=== PATIENT | male | born 1955 | race Caucasian/White ===

== ENCOUNTER 2021-07-10 13:18 | Observation (INO) | payer MEDICARE, MEDICAID, SELFPAY ==
[2021-07-10] VITALS (10 sets, daily range): BP systolic 103–137; BP diastolic 79–97; PULSE 80–109; RESP 12–20; TEMP 36.6–36.7; O2SAT 89–97; BMI 22.7
--- NOTE | 2021-07-10 13:39 | EKG12_ITS ---
Test Reason : HT Blood Pressure : / mmHG Vent. Rate : 077 BPM Atrial Rate : 077 BPM P-R Int : 162 ms QRS Dur : 074 ms QT Int : 374 ms P-R-T Axes : 077 085 079 degrees QTc Int : 423 ms Normal sinus rhythm Low voltage QRS (Limb Leads) Confirmed by BAO GEORGE, TAMAR ([id number]), scientific editor KAILYN MEDRANO ([id number]) on 07/12/2021 8:43:21 AM Referred By: TAE Confirmed By:TAMAR GORE MD
--- NOTE | 2021-07-10 13:41 | EDS_ITS ---
HPI History of Present Illness Chief Complaint: Shortness of Breath Informant: patient Onset/Context/Timing Onset: Today Current Severity: Moderate Maximum Severity: Severe Narrative Narrative: Patient presents via EMS secondary to shortness of breath. Patient has a COPD history and states this time a year he tends to have more trouble breathing. He woke around 3 or 4 this morning with increased wheezing and shortness of breath. He describes significant shortness of breath with any exertion. He denies fever or chills. He denies chest pain. He has had a mild cough for the past couple days. [facility] Medical History COPD (chronic obstructive pulmonary disease) History of back pain History of back problems Multiple sclerosis Home Medications albuterol sulfate [Ventolin HFA] 1 - 2 puff INHALATION Q4H PRN PRN #1 inhaler 05/30/13 [Rx Last Taken Unknown] umeclidinium-vilanterol [Anoro Ellipta] 1 ea INHALATION DAILY 07/10/21 [History Last Taken Unknown] Allergy/AdvReac Type Severity Reaction Status Date / Time Penicillins Allergy Upset Verified 09/06/14 16:06 Stomach Social History Smoking Status: Former smoker ROS ROS ED Constitutional Constitutional ED: Denies chills or fever(s) Eyes Eyes: Denies change in vision ENT ENT ED: Denies sore throat Cardiovascular Cardiovascular: Denies chest pain Respiratory/Chest Respiratory/Chest: Reports cough and dyspnea Gastrointestinal Gastrointestinal: Denies abdominal pain, nausea or vomiting Genitourinary Genitourinary ED: Denies dysuria Musculoskeletal Musculoskeletal: Denies back pain Integumentary Denies rash Neurologic Neurologic: Denies headache(s) Allergic/Immunologic Allergic/Immunologic ED: Denies urticaria EXAM Physical Exam Const Vital Signs: 07/10/21 13:20 07/10/21 13:24 07/10/21 13:52 Temperature 98 F Temperature Source Temporal Pulse Rate 99 84 Respiratory Rate 18 12 Respiratory Effort Short of Breath Labored Respiratory Depth Shallow Respiratory Pattern Tachypnea Normal Blood Pressure 137/97 H Blood Pressure Mean 110 Pulse Ox 97 Oxygen Delivery Method Room Air Room Air 07/10/21 14:40 Temperature Temperature Source Pulse Rate 80 Respiratory Rate 14 Respiratory Effort Respiratory Depth Respiratory Pattern Blood Pressure 116/80 Blood Pressure Mean 92 Pulse Ox 92 Oxygen Delivery Method Room Air Positive well nourished and well developed General Appearance ED: well developed HEENT Reports moist mucous membranes Eyes PERRL and EOMs intact bilaterally Neck supple Chest Wall inspection of chest normal and palpation of chest normal Resp Resp Narrative: Mild tachypnea. Decreased air movement throughout. GI non-tender Palpation: soft Extremity normal to inspection Neuro oriented x3 Sensorium / Orientation: alert Psych mental status grossly normal Skin no rashes or lesions noted MDM MDM MDM Narrative Medical decision making narrative: Lab work and chest x-ray obtained. EKG ordered. Patient given Solu-Medrol along with aerosols. Lab Data Attestation: I reviewed the patient's lab results. Labs: Laboratory Results - last 24 hr 07/10/21 07/10/21 13:33 13:33 WBC 5.5 RBC 5.17 Hgb 14.9 Hct 46.0 MCV 89.0 MCH 28.8 MCHC 32.4 RDW Std Deviation 45.3 H RDW Coeff of Kelsea 13.9 Plt Count 259 MPV 8.4 Immature Gran % (Auto) 0.200 Neut % (Auto) 72.9 H Lymph % (Auto) 13.8 L [place] % (Auto) 7.1 Eos % (Auto) 5.3 H Baso % (Auto) 0.7 Absolute Neuts (auto) 4.0 Absolute Lymphs (auto) 0.76 L Nucleated RBC % 0 Sodium 140 Potassium 4.5 Chloride 105 Carbon Dioxide 31.0 Anion Gap 4 L BUN 8 Creatinine 0.86 Estim Creat Clear Calc 92.08 Est GFR (MDRD) Af Amer 115 Est GFR (MDRD) Non-Af 95 BUN/Creatinine Ratio 9.4 L Glucose 100 Calcium 9.1 Troponin I High Sens < 3 L Radiography Chest X-Ray - ED: 1 View, Read by ED Physician, Chronic Changes and No Infiltrates Diagnostic Testing: Clinical Impression(s) from Imaging Studies Chest X-Ray 07/10/21 14:09 IMPRESSION: Hyperinflation. The lungs are clear. Prominence of the central pulmonary arteries. Electronically Signed: Christiano Arceo MD at 14:25 EDT , EKG Initial EKG: Attestation: I personally reviewed and interpreted this EKG as follows: Interpretation: Sinus Rhythm (Sinus at 77 with no acute ischemia.) Treatment and Re-Evaluation Narrative: Repeat evaluation patient does feel improved while sitting in bed at rest. He had been on 2 L nasal cannula throughout his ED stay. This is turned off. Lab work is unremarkable. EKG is normal. Chest x-ray reveals no focal infiltrate. Patient is ambulated on room air. He does become increasingly short of breath with O2 sat dropping to 89. He does recover with sitting at rest in bed. Lung sounds are grossly clear at this time. Patient does live alone and has been having trouble getting around at home without significant shortness of breath. With his decreased capacity for activity I do feel he should be observed for elena atments and steroids. I will speak with the hospitalist. Discharge Plan Triage Chief Complaint: Shortness of Breath ED Provider: Jessica Zavala Dx/Rx/DC Orders Clinical Impression: COPD exacerbation Prescriptions: No Action albuterol sulfate [Ventolin HFA] 1 INHALER inhaler 1 - 2 puff inhalation Q4H PRN PRN (Reason: Wheezing) Qty: 1 RF: 0 Anoro Ellipta 62.5-25 mcg/actuation blister with device 1 ea INHALATION DAILY RF: 0 Primary Care Provider: Segun Valdez NP Referrals: Segun Valdez NP, [facility]AS[facility] SPEC-C [Primary Care Provider] - Disposition Disposition: Acute Care Hospital [facility]
[2021-07-10] MEDS: Albuterol 2.5 MG/3 ML VIAL.NEB. INHALATION (13:53)
[2021-07-10] MEDS: MethylPREDNISolone 125 MG/2 ML Vial IV (14:02)
[2021-07-10 14:05] LABS: Absolute Lymphocyte Count 0.76 X10^3/uL (0.83-4.51); Basophil# 0.04 X10^3/uL; Basophil% 0.7 % (0-1); Eosinophil# 0.29 X10^3/uL; Eosinophils% 5.3 % (0-5); Hemoglobin 14.9 g/dL (13.0-16.5); Lymphocyte # 0.76 X10^3/ul (0.83-4.51); Lymphocyte % 13.8 % (19-41); Mean Corp Hgb Conc 32.4 g/dL (32-36); Mean Corpuscular Hgb 28.8 pg (27.0-32.0); Mean Platelet Vol. 8.4 fl (6.2-12.0); Monocyte# 0.39 X10^3/uL; Monocyte% 7.1 % (0-10); NRBC Flagged by Analyzer 0 % (0-5); Neutrophil % 72.9 % (47-70); Platelet Count 259 K/mm3 (150-450); RBC Distribution Width CV 13.9 % (11.6-14.6); RBC Distribution Width SD 45.3 fl (35.1-43.9); Red Blood Count 5.17 M/mm3 (4.6-6.2); White Blood Count 5.5 K/mm3 (4.4-11.0)
--- NOTE | 2021-07-10 14:09 | RAD_ITS ---
STUDY: X-RAY CHEST REASON FOR EXAM: Male, 66 years old. Sob TECHNIQUE: Single AP portable view of the chest. COMPARISON: None. FINDINGS: EKG electrodes are seen. Hyperinflation. The lungs are clear. There is no demonstrated pleural abnormality. Normal size heart. Normal mediastinum and rashaad. There is prominence of the pulmonary hilar arteries without peripheral pulmonary vascular congestion, suggesting pulmonary hypertension. Normal visualized aortic arch and descending thoracic aorta. Normal visualized thoracic spine. Normal visualized ribs, clavicles, and shoulders. There is no demonstrated abnormality of the visualized soft tissue structures of the upper abdomen. RAD/Chest 1 View (Portable) IMPRESSION: Hyperinflation. The lungs are clear. Prominence of the central pulmonary arteries. Electronically Signed: Christiano Arceo MD at 14:25 EDT ,
[2021-07-10 14:19] LABS: Anion Gap 4 (5-15); BUN 8 mg/dL (7-18); BUN/Creat Ratio 9.4 RATIO (10-20); Calcium,Total 9.1 mg/dL (8.5-10.1); Chloride 105 mmol/L (98-107); Creatinine, Serum 0.86 mg/dL (0.70-1.30); EST Glomerular Filtration Rate 95 mL/min (>60); Est Glom Filt Rate - Afr Amer 115 mL/min (>60); Estimated Creatinine Clearance 92.08 ml/min; Glucose 100 mg/dL (74-106); Potassium 4.5 mmol/L (3.5-5.1); Sodium Level 140 mmol/L (136-145); Troponin-I HS < 3 pg/mL (3.0-78.0)
--- NOTE | 2021-07-10 15:08 | NURSING ---
DR GRIFFIN FOR DR CARBAJAL
--- NOTE | 2021-07-10 15:15 | NURSING ---
MED SURG OBS TERELETSKY COPD EXAC
--- NOTE | 2021-07-10 15:23 | PCM.HP.STD ---
Documented by User: Tony ROJO 07/10/21 15:40 HPI - General General Date of Admission: 07/10/21 Date of Service: 07/10/21 Chief Complaint: Shortness of breath HPI Narrative ANA KAPOOR is a 66-year-old male who presents to the ED at [facility] on 07/10/2021 with a chief complaint of shortness of breath. Patient reports that for the past 3 to 4 days he has been having increasingly worsening shortness of breath with wheezing. Patient reports that he went to his local urgent care and when he walked into the door they immediately called the squad because he says I must have looked really bad. Patient no longer smokes, but does report a 40-year history of smoking 1 to 2 packs/day. Patient reports that he quit smoking 3 years ago. Patient denies any infectious symptoms to include fever, chills, N/V/D. Patient denies any other respiratory symptoms to include cough, sputum production, hemoptysis or chest pain. Vital signs in the ED are unremarkable and patient is currently satting 90% on room air. CBC and BMP are unremarkable. High-sensitivity troponins are within normal limits. Chest x-ray is consistent with emphysematous change with hyperinflation of the lungs, although there appears to be no acute cardiopulmonary process. Patient was given bronchodilators and IV Solu-Medrol in the ED. [facility] Medical History (Updated 07/10/21 @ 15:28 by Tony ROJO) COPD (chronic obstructive pulmonary disease) History of back pain History of back problems Multiple sclerosis Myocardial infarct Smoker Stroke Home Medications albuterol sulfate [Ventolin HFA] 2 puff INHALATION Q6H 07/10/21 [History Last Taken 07/10/21] prednisone 20 mg PO DAILY 07/10/21 [History Last Taken Unknown] sildenafil 100 mg PO DAILY PRN 07/10/21 [History Last Taken Unknown] umeclidinium-vilanterol [Anoro Ellipta] 1 ea INHALATION DAILY 07/10/21 [History Last Taken 07/10/21] Allergy/AdvReac Type Severity Reaction Status Date / Time Penicillins Allergy Upset Verified 09/06/14 16:06 Stomach Family History Father Myocardial infarction Surgical History no surgical history no surgical history Social History (Updated 07/10/21 @ 15:30 by Tony ROJO) Smoking Status: Former smoker quit date: 07/10/18 pack-years: 60 ROS Constitutional Constitutional: Reports weakness; Denies anorexia, change in weight, chills, fatigue, fever(s), malaise, night sweats or other Eyes Eyes: Denies blurry vision, change in eye color, change in vision, discharge from eye(s), double vision, erythema, eye pain, loss of vision or other ENT HEENT: Denies abnormal hearing, dysphagia, ear pain, epistaxis, headache(s), hearing loss, nasal congestion, nasal discharge, post nasal drip, sinus pressure, sore throat or other Cardiovascular Cardiovascular: Reports dyspnea on exertion; Denies chest pain, claudication, edema, lightheadedness, orthopnea, palpitations, paroxysmal nocturnal dyspnea, rapid heart rate, syncope or other Respiratory/Chest Respiratory/Chest: Reports shortness of breath at rest, shortness of breath with exertion and wheezing; Denies cough, dyspnea, excessive phlegm production, hemoptysis, productive cough or other Gastrointestinal Gastrointestinal: Denies abdominal pain, coffee ground emesis, constipation, diarrhea, dyspepsia, hematemesis, hematochezia, loose stools, melena, nausea, vomiting or other Genitourinary Genitourinary: Denies burning urination, difficulty urinating, dysuria, hematuria, nocturia, urinary frequency, urinary hesitancy, urinary incontinence, urinary urgency or other Musculoskeletal Musculoskeletal: Denies arthralgias, back pain, joint pain, joint stiffness, joint swelling, myalgias, neck pain or other Neurologic Neurologic: Denies abnormal gait, abnormal speech, confusion, disequilibrium, dizziness, focal weakness, headache(s), numbness, paresthesias, seizure-like activity, seizures, syncope, tingling, tremor(s) or other Psychiatric Psychiatric: Denies anxiety, depression, homicidal ideation, suicidal ideation or other Endocrine Endocrinology: Denies change in body appearance, cold intolerance, excessive sweating, heat intolerance, polydipsia, polyuria or other Hematologic/Lymphatic Hematologic/Lymphatic: Denies anemia, easy bleeding, easy bruising, lymphadenopathy or other Allergic/Immunologic Allergic/Immunologic: Denies rhinitis, hives, eczemia, asthma or other Vital Signs Vital Signs Vital Signs: 07/10/21 13:20 07/10/21 13:24 07/10/21 13:52 Temperature 98 F Temperature Source Temporal Pulse Rate 99 84 Respiratory Rate 18 12 Respiratory Effort Short of Breath Labored Respiratory Depth Shallow Respiratory Pattern Tachypnea Normal Blood Pressure 137/97 H Blood Pressure Mean 110 Pulse Ox 97 Oxygen Delivery Method Room Air Room Air 07/10/21 14:40 Temperature Temperature Source Pulse Rate 80 Respiratory Rate 14 Respiratory Effort Respiratory Depth Respiratory Pattern Blood Pressure 116/80 Blood Pressure Mean 92 Pulse Ox 92 Oxygen Delivery Method Room Air Weight Weight: 172 lb 2.896 oz Body Mass Index (BMI) 22.7 Physical Exam Const alert and oriented x3 General Appearance: cooperative HEENT normocephalic, head/scalp atraumatic and hearing grossly normal bilaterally Eyes PERRL, EOMs intact bilaterally and conjunctivae normal Neck no lymphadenopathy, supple and no JVD Resp normal respiratory effort, normal air movement and no retractions Resp Narrative: Wheezing present on auscultation throughout the right and left lung dawkins. Currently satting 90% on room air. Cardio regular rate, regular rhythm and no JVD GI normal to inspection, nondistended, normoactive bowel sounds Extremity normal to inspection Skin no rashes or lesions noted Neuro CN's II-XII intact bilaterally Psych affect normal Results Lab / Micro Data Result Diagrams: 07/10/21 13:33 07/10/21 13:33 Labs: Laboratory Results - last 24 hr 07/10/21 13:33: WBC 5.5, RBC 5.17, Hgb 14.9, Hct 46.0, MCV 89.0, MCH 28.8, MCHC 32.4, RDW Std Deviation 45.3 H, RDW Coeff of Kelsea 13.9, Plt Count 259, MPV 8.4, Immature Gran % (Auto) 0.200, Neut % (Auto) 72.9 H, Lymph % (Auto) 13.8 L, [place] % (Auto) 7.1, Eos % (Auto) 5.3 H, Baso % (Auto) 0.7, Absolute Neuts (auto) 4.0, Absolute Lymphs (auto) 0.76 L, Nucleated RBC % 0 07/10/21 13:33: Sodium 140, Potassium 4.5, Chloride 105, Carbon Dioxide 31.0, Anion Gap 4 L, BUN 8, Creatinine 0.86, Estim Creat Clear Calc 92.08, Est GFR (MDRD) Af Amer 115, Est GFR (MDRD) Non-Af 95, BUN/Creatinine Ratio 9.4 L, Glucose 100, Calcium 9.1, Troponin I High Sens < 3 L Radiology Impression Chest X-Ray 07/10/21 14:09 IMPRESSION: Hyperinflation. The lungs are clear. Prominence of the central pulmonary arteries. Electronically Signed: Christiano Arceo MD at 14:25 EDT , Assessment & Plan Assessment/Plan (1) COPD exacerbation: PLAN: Patient is a 66-year-old male who presents to the ED at [facility] on 07/10/2021 with a chief complaint of shortness of breath. Patient will be admitted for observation to evaluate and manage acute COPD exacerbation. 1) acute on chronic COPD exacerbation Patient not in acute hypoxic respiratory failure as oxygen saturations have maintained. Patient does endorse a 40-year smoking history of smoking 1 to 2 packs/day. Patient reports that he quit smoking 3 years ago. Chest x-ray consistent with emphysematous change with hyperinflated lungs. No acute cardiopulmonary process appreciated on CXR. Will not initiate antibiotics as patient is without any infectious symptoms. Plan; admit to [facility] for observation, initiate IV steroid, initiate bronchodilators, incentive spirometry encouraged, supplemental oxygen as needed, CBC and BMP in a.m. 2) history of FL Patient reports that he suffered a heart attack in 2001, reports being treated by Dr. Conway. Not on any preventative aspirin and statin regimen. 3) history of stroke Patient reports that he suffered a stroke in 2008. Not on any preventative aspirin and statin regimen. 4) history of tobacco abuse Patient reports a 40-year history of smoking 1 to 2 packs/day. Patient reports that he quit 3 years ago, further cessation encouraged. DVT Prophylaxis - Heparin Patient seen by Tony Rivera PA-C, under the supervision of Dr. Eason. Time spent on patient care: 25 minutes. Documented by User: Dr. Lexx Eason DO 07/10/21 18:01 HPI - General General Date of Admission: 07/10/21 [facility] Medical History (Updated 07/10/21 @ 15:28 by Tony ROJO) COPD (chronic obstructive pulmonary disease) History of back pain History of back problems Multiple sclerosis Myocardial infarct Smoker Stroke Home Medications albuterol sulfate [Ventolin HFA] 2 puff INHALATION Q6H 07/10/21 [History Last Taken 07/10/21] prednisone 20 mg PO DAILY 07/10/21 [History Last Taken Unknown] sildenafil 100 mg PO DAILY PRN 07/10/21 [History Last Taken Unknown] umeclidinium-vilanterol [Anoro Ellipta] 1 ea INHALATION DAILY 07/10/21 [History Last Taken 07/10/21] Allergy/AdvReac Type Severity Reaction Status Date / Time Penicillins Allergy Upset Verified 09/06/14 16:06 Stomach Family History Father Myocardial infarction Surgical History no surgical history Social History (Updated 07/10/21 @ 15:30 by Tony ROJO) Smoking Status: Former smoker quit date: 07/10/18 pack-years: 60 Results Lab / Micro Data Result Diagrams: 07/10/21 13:33 07/10/21 13:33 Charges/Coding Addendum Addendum: Patient was seen and examined independently of Tony Rivera, he came to the ER today with complaints of increasing shortness of breath over the last 24 hours. Patient has a history of chronic obstructive pulmonary disease but has not seen a family physician for several months, his last family physician retired, he went to get a refill on his medications last week and was told he had to come in for checkup-he saw a physician Thursday a week ago and his inhalers were renewed and he was placed on prednisone. Patient did not take the prednisone however because he did not understand what it was used for. Patient denies any fever or chills, he denies any sputum production. Patient states he quit smoking approximately 3 years ago. Patient states he is never seen a editor house organ, other medical problems that the patient has include MS for which she is not under active treatment, and degenerative joint disease of the lumbar spine-he used to get epidural injections in his lumbar spine but he has not in quite some time. On examination he appeared older than stated age. Vital signs as documented. Skin warm and dry and without overt rashes. Neck without JVD, neck was supple, trachea midline, thyroid was normal. Lungs-there are expiratory wheezes noted over both lung dawkins, decreased breath sounds were noted bilaterally, heart exam notable for regular rhythm, normal sounds and absence of murmurs, rubs or gallops. Abdomen unremarkable and without evidence of organomegaly, masses, or abdominal aortic enlargement. Bowel sounds are present, abdomen is not distended. Extremities nonedematous, no cyanosis was noted, no clubbing was noted. Neuro: Cranial nerves II through XII are grossly intact, no focal motor deficits were noted, sensation to light touch and pinprick intact, motor exam 5/5 throughout. Psych: Patient is alert and oriented x3, he does not appear anxious or depressed, he does not appear agitated. Patient's chest x-ray did not show evidence of the pneumonia, patient was given an aerosol treatment and IV corticosteroids in the emergency room but remained dyspneic on walking and it was felt that he should be placed in observation status overnight for exacerbation of COPD. I reviewed Tony Rivera's history and physical including his medical assessment and plan of care and with the above additions endorse it. Total clinical time spent by myself addressing the patient's issues, reviewing the patient's medical data, and collaborating with the patient's care team: 45 minutes Visit Charges OBSV E&M: [id number] Initial observation care L3
[2021-07-10] MEDS: Ipratropium/Albuterol Sulfate 3 ML AMPUL.NEB INHALATION ×2 (19:08→22:59)
[2021-07-10] MEDS: 0.9% Saline Lock 10 ML Syringe IV (20:34)
[2021-07-10] MEDS: Heparin Injection (Vial) 5,000 UNIT/ML VIAL 5000 UNIT SC (20:34)
[2021-07-11] VITALS (10 sets, daily range): BP systolic 115–118; BP diastolic 78–88; PULSE 78–110; RESP 12–28; TEMP 36.5–36.7; O2SAT 2–95
[2021-07-11] MEDS: Ipratropium/Albuterol Sulfate 3 ML AMPUL.NEB INHALATION ×3 (03:40→11:28)
[2021-07-11] MEDS: 0.9% Saline Lock 10 ML Syringe IV (06:40)
[2021-07-11] MEDS: Heparin Injection (Vial) 5,000 UNIT/ML VIAL 5000 UNIT SC (08:13)
--- NOTE | 2021-07-11 10:05 | CASEMGMT ---
Addendum entered by Park Cedeño 07/11/21 14:44: TELLO SNELL in to pt room, pt is agreeable to having a taxi take him to the [facility] urgent care to get his car. Notified driller helper to set up. Addendum entered by Park Cedeño 07/11/21 14:28: Notified from pt nurse that pt does not have transportation home. TC to [facility] transportation, they do not have availability to take pt home. Addendum entered by Park Cedeño 07/11/21 14:25: Received notification that [facility] could not take pt. Pt agreeable to [facility] and [facility] to be contacted as well. [facility] is not sure if they can accept the insurance. [facility] is able to see pt with SOC tomorrow. Pt is agreeable to this. Provided pt nurse with pox for pt. Pt denies further needs. Addendum entered by Park Cedeño 07/11/21 11:27: Pt qualifies for home O2. Faxed order to [employer], portable tank taken from [employer]. Addendum entered by Park Cedeño 07/11/21 11:12: Patient was provided a list of [facility] providers including quality and resource use data and consistent with the patient?s preferred geographic region, medical needs, and insurance network. The patient?s preferred provider is [facility], [facility] and [facility]. [facility] not able to [facility] this pt insurance. TC to [facility], left message on intake. Faxed referral to [facility] and [facility]. Original Note: TELLO SNELL Assessment: Face to Face with pt for initial transition planning/care coordination assessment. TELLO SNELL introduced self and role at [facility], pt voices understanding and consents to assessment. Pt is A/O x4 and answers all questions appropriately at this time. Pt lying in bed with O2 on in no distress. Care providers, pharmacy, and demographics verified/updated. Admitting Dx: exac of COPD PCP:Segun Valdez NP Specialists:Pt denies. Preferred Pharmacy:[facility] Insurance: [facility] Dual Complete Prescription Benefit: yes LW/HPOA: Pt denies having a LW/DPOA and denies need for info regarding AD. LNOK: Pt denies having any contacts to list. He states he has lost 25 friends/family in the last couple of years. States approx 9 or 10 was due to cancer. Living Arrangements: Pt lives alone in a mobile home with 3 steps to enter without a rail. Pt states his steps and home is in poor repair. Denies need to speak to [employer] for housing resources. Pt reports some days he is I in ADL's and some days he is not d/t his shortness of breath. States most recently, pt unable to bathe d/t sob. Transportation: Pt drives self and denies concerns with transportation. DME/HHC/SNF: Pt has a cane, crutches and a w/c at home. Pt denies hx of HHC or SNF stays. Pt states no concerns with going home at time of dc. Discussed HHC and SN for resp assessment and teaching and OT for energy conservation. Pt is also interested in PT, but states he cannot overdo it. Pt agreeable to HHC. Pt states no further concerns/needs. CM to follow. Advised pt to ask CM if any further question/concerns/needs arise, voices understanding. Pt Goal: Home with HHC Plan: Home with HHC, will follow for O2 needs.
--- NOTE | 2021-07-11 10:31 | DCINST_ITS ---
Discharge Instructions Diet Discharge Diet: No restrictions Activity Discharge Activity: Return to Normal Activity Dressing / Incision Call your doctor if you observe: Fever of 101 or Higher, Shortness of breath, Dizziness and Chest pain Follow Up Care Test Results: Test results from this visit will be discussed in further detail at your follow-up appointment, if applicable. Discharge Plan Admission Admit Date/Time: 07/10/21 15:12 Primary Reason for Your Visit: COPD exacerbation Attending Provider: Lexx Eason Primary Care Provider: Segun Valdez NP Instructions Additional Instructions / Restrictions: Continue supplemental oxygen as ordered at discharge. Continue outpatient follow-up for pulmonary function testing/pulmonary follow-up as scheduled. Discharge Orders/Prescriptions Prescriptions: New azithromycin 500 mg tablet 500 mg PO DAILY 3 Days Qty: 3 RF: 0 prednisone 10 mg tablet See Taper mg PO DAILY Qty: 30 RF: 0 Continued Anoro Ellipta 62.5-25 mcg/actuation blister with device 1 ea INHALATION DAILY RF: 0 sildenafil 100 mg tablet 100 mg PO DAILY PRN (Reason: Sexual Activity) RF: 0 albuterol sulfate [Ventolin HFA] 1 INHALER HFA aerosol inhaler 2 puff inhalation Q6H RF: 0 Discontinued prednisone 20 mg tablet 20 mg PO DAILY RF: 0 Referrals / Follow Up: Paresh Steele MD [NON-STAFF] - Within 2 Weeks (as scheduled. ) Segun Valdez NP, [facility] [Primary Care Provider] - Within 1 Week Disposition Disposition (needs filled in before D/C Order can be placed): Home, Self Care
--- NOTE | 2021-07-11 10:44 | PCM.DC.SUM ---
Documented by User: Miladys Sanderson NP, ACCOUNT RETENTION REPRESENTATIVE-C 07/11/21 11:24 Providers Date of Admission: 07/10/21 Date of Discharge: 07/11/21 Primary Care Physician: KRISTY Flores Reason For Visit: EXACERBATION OF COPD Diagnosis Discharge Diagnosis (1) COPD exacerbation: Status: Chronic Code(s): J44.1 - Chronic obstructive pulmonary disease with (acute) exacerbation Medications at Discharge Home Medications Anoro Ellipta 1 ea INHALATION DAILY 07/10/21 albuterol sulfate [Ventolin HFA] 2 puff INHALATION Q6H 07/10/21 sildenafil 100 mg PO DAILY PRN 07/10/21 azithromycin 500 mg PO DAILY 3 Days #3 tab 07/11/21 prednisone See Taper PO DAILY #30 tab 07/11/21 Hospital Course Operations None Procedures None Summary of Care Provided Hospital Course: Patient is a 66 year old male admitted 07/10/21 due to shortness of breath. 1. Acute exacerbation of chronic COPD-chest x-ray without infiltrate. Patient recently referred to pulmonary medicine as outpatient with scheduled PFTs/outpatient COPD work-up and management. Patient will require require supplemental oxygen with exertion at discharge. Continue supplement oxygen to maintain O2 above 90%. Patient received IV steroids and aerosols during admission. He improved quicker than expected. Discharged on prednisone taper, home inhaler regimen with further outpatient pulmonary follow-up. Follow-up with PCP within 1 week. 2. History of [place]-not on regimen. 3. History of CVA-not on aspirin, statin. 4. Former tobacco onc-12-viru-year history. Quit 3 years ago. Encouraged continued cessation. Patient seen and examined prior to discharge. Physical assessment as noted below. Patient is stable for discharge with follow up recommendations as noted above. This patient was seen by KRISTY Hu under the supervision of Dr. Eason. Time spent examining patient, reviewing data and subsequent management of care: 14 Minutes Physical Exam Const alert, oriented x3 and no apparent distress Orientation / Consciousness: awake, oriented to person, oriented to place and oriented to time HEENT normocephalic and moist oral mucous membranes Eyes PERRL, EOMs intact bilaterally and conjunctivae normal Neck no lymphadenopathy Resp Auscultation: wheezes and diminished lung sounds Cardio regular rate, regular rhythm and no murmurs Peripheral Pulses: pulses 2+ throughout GI normal to inspection, nondistended, normoactive bowel sounds, non-tender and non-distended Extremity normal to inspection Skin no rashes or lesions noted Lesions: no lesions Rashes: no rashes Trauma: no lacerations or abrasions Neuro CN's II-XII intact bilaterally, no focal motor deficits, no sensory deficits noted and deep tendon reflexes 2+ bilaterally Psych mental status grossly normal and affect normal Weight / BMI Weight Weight: 172 lb 2.896 oz Body Mass Index (BMI) 22.7 ABG / Lab / Microbiology Data Result Diagrams: 07/10/21 13:33 07/10/21 13:33 Laboratory: Laboratory Results - last 24 hr 07/10/21 13:33: WBC 5.5, RBC 5.17, Hgb 14.9, Hct 46.0, MCV 89.0, MCH 28.8, MCHC 32.4, RDW Std Deviation 45.3 H, RDW Coeff of Kelsea 13.9, Plt Count 259, MPV 8.4, Immature Gran % (Auto) 0.200, Neut % (Auto) 72.9 H, Lymph % (Auto) 13.8 L, [place] % (Auto) 7.1, Eos % (Auto) 5.3 H, Baso % (Auto) 0.7, Absolute Neuts (auto) 4.0, Absolute Lymphs (auto) 0.76 L, Nucleated RBC % 0 07/10/21 13:33: Sodium 140, Potassium 4.5, Chloride 105, Carbon Dioxide 31.0, Anion Gap 4 L, BUN 8, Creatinine 0.86, Estim Creat Clear Calc 92.08, Est GFR (MDRD) Af Amer 115, Est GFR (MDRD) Non-Af 95, BUN/Creatinine Ratio 9.4 L, Glucose 100, Calcium 9.1, Troponin I High Sens < 3 L Radiography Diagnostic Testing: Radiology Impression Chest X-Ray 07/10/21 14:09 IMPRESSION: Hyperinflation. The lungs are clear. Prominence of the central pulmonary arteries. Electronically Signed: Christiano Arceo MD at 14:25 EDT , D/C Instructions Discharge Diet: No restrictions Call your doctor if you observe: Fever of 101 or Higher, Shortness of breath, Dizziness and Chest pain Meaningful Use Info Meaningful Use Diagnoses (Choose all that apply): None applicable Discharge Plan Admission Admit Date/Time: 07/10/21 15:12 Primary Reason for Your Visit: COPD exacerbation Attending Provider: Lexx Eason Primary Care Provider: Segun Valdez NP Instructions Additional Instructions / Restrictions: Continue supplemental oxygen as ordered at discharge. Continue outpatient follow-up for pulmonary function testing/pulmonary follow-up as scheduled. Discharge Orders/Prescriptions Prescriptions: New azithromycin 500 mg tablet 500 mg PO DAILY 3 Days Qty: 3 RF: 0 prednisone 10 mg tablet See Taper mg PO DAILY Qty: 30 RF: 0 Continued Anoro Ellipta 62.5-25 mcg/actuation blister with device 1 ea INHALATION DAILY RF: 0 sildenafil 100 mg tablet 100 mg PO DAILY PRN (Reason: Sexual Activity) RF: 0 albuterol sulfate [Ventolin HFA] 1 INHALER HFA aerosol inhaler 2 puff inhalation Q6H RF: 0 Discontinued prednisone 20 mg tablet 20 mg PO DAILY RF: 0 Referrals / Follow Up: Paresh Steele MD [NON-STAFF] - Within 2 Weeks (as scheduled. ) Segun Valdez NP, ACCOUNT RETENTION REPRESENTATIVE-C [Primary Care Provider] - Within 1 Week Disposition Disposition (needs filled in before D/C Order can be placed): Home Health Service Documented by User: Dr. Lexx Eason DO 07/13/21 12:49 Providers Date of Admission: 07/10/21 Reason For Visit: EXACERBATION OF COPD Medications at Discharge Home Medications Anoro Ellipta 1 ea INHALATION DAILY 07/10/21 albuterol sulfate [Ventolin HFA] 2 puff INHALATION Q6H 07/10/21 sildenafil 100 mg PO DAILY PRN 07/10/21 azithromycin 500 mg PO DAILY 3 Days #3 tab 07/11/21 prednisone See Taper PO DAILY #30 tab 07/11/21 ABG / Lab / Microbiology Data Result Diagrams: 07/10/21 13:33 07/10/21 13:33 Discharge Plan Admission Admit Date/Time: 07/10/21 15:12 Primary Reason for Your Visit: COPD exacerbation Attending Provider: Lexx Eason Primary Care Provider: Segun Valdez NP Instructions Additional Instructions / Restrictions: Continue supplemental oxygen as ordered at discharge. Continue outpatient follow-up for pulmonary function testing/pulmonary follow-up as scheduled. Discharge Orders/Prescriptions Prescriptions: New azithromycin 500 mg tablet 500 mg PO DAILY 3 Days Qty: 3 RF: 0 prednisone 10 mg tablet See Taper mg PO DAILY Qty: 30 RF: 0 Continued Anoro Ellipta 62.5-25 mcg/actuation blister with device 1 ea INHALATION DAILY RF: 0 sildenafil 100 mg tablet 100 mg PO DAILY PRN (Reason: Sexual Activity) RF: 0 albuterol sulfate [Ventolin HFA] 1 INHALER HFA aerosol inhaler 2 puff inhalation Q6H RF: 0 Discontinued prednisone 20 mg tablet 20 mg PO DAILY RF: 0 Referrals / Follow Up: Paresh Steele MD [NON-STAFF] - Within 2 Weeks (as scheduled. ) Segun Valdez NP, ACCOUNT RETENTION REPRESENTATIVE-C [Primary Care Provider] - Within 1 Week Disposition Disposition (needs filled in before D/C Order can be placed): Home Health Service Charges/Coding Addendum Addendum: Patient was seen and examined on 07/11/2021 independently of Miladys Sanderson, he appears comfortable at rest, he is not complaining of any shortness of breath at rest. On examination he appeared in good health and spirits. Vital signs as documented. Skin warm and dry and without overt rashes. Neck without JVD, neck was supple, trachea midline, thyroid was normal. Lungs clear bilaterally, normal air movement was noted. Heart exam notable for regular rhythm, normal sounds and absence of murmurs, rubs or gallops. Abdomen unremarkable and without evidence of organomegaly, masses, or abdominal aortic enlargement. Bowel sounds are present, abdomen is not distended. Extremities nonedematous, no cyanosis was noted, no clubbing was noted. Neuro: Cranial nerves II through XII are grossly intact, no focal motor deficits were noted, sensation to light touch and pinprick intact, motor exam 5/5 throughout. Psych: Patient is alert and oriented x3, he does not appear anxious or depressed, he does not appear agitated. Patient will require home oxygen supplementation at rest and with ambulation, his pulse ox at rest on room air was 88%, on 2 L at rest it was 91%. Patient's pulse ox when ambulating with 3 L of oxygen is 89%. He will be expected to wear oxygen inside his home and outside his home during ADLs and at rest. Impression:. #1 exacerbation of COPD-patient will need outpatient follow-up with his PCP and may need to see a veterinary practitioner for follow-up. #2 atherosclerotic heart disease-stable at this time #3 cerebrovascular disease-patient is currently not on any aspirin or statin, he will be following up with his PCP I have reviewed Miladys Sanderson's discharge summary including her medical assessment and plan of care and with the above additions endorse it. Total clinical time spent by myself addressing the patient's medical issues, reviewing the patient's medical data, and collaborating with the patient's care team: 20 minutes Visit Charges OBSV E&M: [id number] Observation care discharge
== END 2021-07-11 15:04 | disposition home health service (06) ==
LOC: ED 15:12 → MS3 15:24
PROVIDERS: Admitting Provider Internal Medicine; Emergency Provider Emergency Medicine; PCP Nurse Practitioner Family; Visit Provider Internal Medicine
DX: J44.1 Chronic obstructive pulmonary disease with (acute) exacerbation (principal); G35 Multiple sclerosis; I25.10 Atherosclerotic heart disease of native coronary artery without angina pectoris; Z87.891 Personal history of nicotine dependence; Z79.899 Other long term (current) drug therapy; Z79.52 Long term (current) use of systemic steroids; I25.2 Old myocardial infarction
CPT/HCPCS: 71045; 80048; 84484; 85025; 93005; 94640; 96372; 96374; 96376; 99218; 99251; 99285; 99406; A4216; G0378; G0463

== ENCOUNTER 2023-08-30 10:02 | Inpatient (IN) | payer MEDICARE, MEDICAID, SELFPAY ==
[2023-08-30] VITALS (25 sets, daily range): BP systolic 99–161; BP diastolic 70–93; PULSE 86–110; RESP 12–26; TEMP 36.6–36.8; O2SAT 95–130; BMI 18.9; BMI 17.9
--- NOTE | 2023-08-30 10:30 | ED.VIS.DYS ---
HPI History of Present Illness Chief Complaint: Shortness of Breath PFS PFS Medical History (Updated 07/19/21 @ 00:01 by Kisha Zelaya) COPD (chronic obstructive pulmonary disease) History of back pain History of back problems Multiple sclerosis Myocardial infarct Smoker Stroke Home Medications albuterol sulfate 90 mcg/actuation aerosol inhaler (Ventolin HFA) 2 puff inhalation Q6H SOB 07/10/21 [History Last Taken 07/10/21] sildenafil 100 mg tablet 100 mg PO DAILY PRN Sexual Activity 07/10/21 [History Last Taken Unknown] umeclidinium 62.5 mcg-vilanterol 25 mcg/actuation powdr for inhalation (Anoro Ellipta) 1 ea inhalation DAILY SOB 07/10/21 [History Last Taken 07/10/21] azithromycin 500 mg tablet 500 mg PO DAILY 3 days #3 tabs 07/11/21 [Rx Last Taken Unknown] prednisone 10 mg tablet See Taper PO DAILY #30 tabs 07/11/21 [Rx Last Taken Unknown] Allergy/AdvReac Type Severity Reaction Status Date / Time Penicillins Allergy Upset Verified 08/30/23 10:15 Stomach Family History Father Myocardial infarction Social History (Updated 07/10/21 @ 15:30 by Tony ROJO) Smoking Status: Former smoker quit date: 07/10/18 pack-years: 60 EXAM Physical Exam Const Vital Signs: 08/30/23 10:06 08/30/23 10:16 08/30/23 11:06 Temperature 97.9 F Temperature Source Temporal Pulse Rate 101 H Respiratory Rate 23 H Respiratory Effort Short of Breath Respiratory Depth Shallow Respiratory Pattern Tachypnea Blood Pressure 161/93 H Blood Pressure Mean 115 Pulse Ox 98 Oxygen Delivery Method Nasal Cannula Bi-pap Oxygen Flow Rate (L/min) 6 Fraction of Inspired Oxygen (FIO2) 08/30/23 11:06 08/30/23 11:03 08/30/23 10:30 Temperature 97.8 F Temperature Source Temporal Pulse Rate 109 H 108 H Respiratory Rate 19 H 18 25 H Respiratory Effort Respiratory Depth Respiratory Pattern Blood Pressure 151/86 H 151/86 H Blood Pressure Mean 107 107 Pulse Ox 98 98 96 Oxygen Delivery Method Bi-pap Bi-pap Oxygen Flow Rate (L/min) Fraction of Inspired Oxygen (FIO2) 40 08/30/23 11:05 05/12/24 12:00 08/30/23 12:00 Temperature 97.8 F Temperature Source Temporal Pulse Rate 110 H 106 H 106 H Respiratory Rate 24 H 19 H 20 H Respiratory Effort Respiratory Depth Respiratory Pattern Blood Pressure 138/70 H 138/70 H Blood Pressure Mean 92 92 Pulse Ox 98 98 Oxygen Delivery Method Bi-pap Bi-pap Oxygen Flow Rate (L/min) Fraction of Inspired Oxygen (FIO2) [facility] [place] N[place] Medical decision making narrative: HISTORY OF PRESENT ILLNESS: 68-year-old male presents with shortness of breath. Notes symptoms worsened yesterday. Notes history of COPD. The patient denies recent surgery in the last 4 weeks or immobilization in the last 3 days, denies previous diagnosis of DVT or PE, hemoptysis, unilateral leg swelling or malignancy with treatment the last 6 months or palliative. No estrogen use noted. Denies chest pain. Denies bleeding diathesis. Denies recent illness. REVIEW OF SYSTEMS: Pertinent positives: Shortness of breath Pertinent negatives: Chest pain, syncope PHYSICAL EXAM: Nursing triage notes reviewed, Vital signs reviewed Constitutional: please see mdm HENT: MMM Eyes: Pupils equal round and reactive to light, Extraocular muscles intact Neck: No stridor, no JVD, full neck ROM Lungs: Wheezing, prolonged expiratory phase, respiratory distress, conversational dyspnea, accessory muscle use, belly breathing, intercostal retractions Heart: Regular rate and rhythm, No murmurs, No rubs and No gallops, 2+ distal pulses (radial, femoral, posterior tibial) in all extremities Abdomen: Soft, there is no tenderness, rigidity, rebound or guarding, no obvious peritoneal signs, no palpable pulsatile abdominal masses, no auscultated abdominal bruit : No CVAT Extremities: No edema Neuro: No focal neurological deficits, cranial nerves II through XII intact, 5/5 strength in all extremities. Intact sensation to light touch in all extremities, 2+ reflexes bilateral patella tendons. Normal gait. No ataxia. Skin: No rash or lesions noted MEDICAL DECISION MAKING: Chief Complaint: Shortness of breath External records reviewed: Imaging reviewed: Chest x-ray reviewed from 2021 shows hyperinflation consistent with COPD Factors affecting care: COPD Social determinants of health: History of tobacco use History obtained from others: EMS Consults: Internal medicine (Dr. Leal) , respiratory therapy MDM Narrative: Patient was initially hypertensive, tachypneic and tachycardic saturating in acceptable 98% on nasal cannula. Given severe respiratory distress he was started on rescue BiPAP and given empiric COPD treatment as patient's lung exam is most consistent with COPD I considered the following differential diagnosis: COPD exacerbation, pneumonia, COVID, CHF, ACS, arrhythmia, anemia, PE While I considered pulmonary embolism as a potential etiology I thought this was less likely given the patient's low risk Wells score, focal lung findings are more possible diagnosis of COPD exacerbation ALL IMAGES (IF OBTAINED) HAVE BEEN PERSONALLY REVIEWED AND INTERPRETED BY MYSELF. EKG with normal sinus rhythm, normal axis, normal intervals, no STEMI CBC without leukocytosis, severe anemia, no thrombocytopenia. VBG with evidence of acute CO2 retention likely secondary to COPD BMP without evidence of significant electrolyte abnormalities, no anion gap, no acute kidney injury. High-sensitivity troponin is negative, no evidence of myocardial ischemia BMP pending, cannot run this until Thursday I have personally reviewed the patient's chest x-ray. Chest x-ray is unremarkable for pulmonary edema, pneumothorax, pneumonia or focal cardiopulmonary abnormality. The synthesis of the patient's history, physical exam, labs images suggest severe COPD exacerbation requiring rescue BiPAP. Patient improved after approximately 1.5 hours on BiPAP. And continuous nebs as well as steroids. Given extremis and signs of respiratory failure patient is admitted to hospitalist service for ongoing breathing treatments and monitoring The patient and/or family, caregivers express understanding. The patient and/or family, caregivers agrees with the plan. Shared decision making: I will have a discussion with the patient and or visitors regarding risk/benefits of further testing or admission. They will be made aware of of the risk/benefits inherent in this decision they will be given the opportunity to voice understanding. Total critical care time today provided was at least 35 minutes. This excludes separately billable procedures. Critical care time (if documented) is secondary to the patient having high probability of clinically significant/life threatening deterioration in the patient's condition which required my urgent intervention. Impression: 1. Acute respiratory failure 2. COPD exacerbation 3. Respiratory acidosis Dispo: Admit to ICU This note was generated with [employer] dictation software. It may contain incorrect words, spelling, and punctuation that were not noted in review of the chart prior to signing. Lab Data Labs: Laboratory Results - last 24 hr 08/30/23 10:50 WBC 5.8 RBC 4.93 Hgb 13.8 Hct 44.8 MCV 90.9 MCH 28.0 MCHC 30.8 L RDW Std Deviation 48.5 H RDW Coeff of Kelsea 14.6 Plt Count 208 MPV 9.9 Immature Gran % (Auto) 0.300 Neut % (Auto) 79.5 H Lymph % (Auto) 11.9 L [place] % (Auto) 7.8 Eos % (Auto) 0.0 Baso % (Auto) 0.5 Absolute Neuts (auto) 4.6 Absolute Lymphs (auto) 0.69 L Nucleated RBC % 0 Sodium 137 Potassium 4.3 Chloride 102 Carbon Dioxide 29.0 Anion Gap 6 BUN 7 Creatinine 0.67 L Estim Creat Clear Calc 80.27 Est GFR (MDRD) Af Amer 150 Est GFR (MDRD) Non-Af 124 BUN/Creatinine Ratio 10.4 Glucose 129 H Calcium 8.7 Troponin I High Sens 7 ABG Data ABG results: ABG 08/30/23 10:53 Specimen Type SONU Sample Site Not entered O2 % 40.0 VBG pH 7.24 L VBG pO2 53 H VBG HCO3 28 H VBG Total CO2 30 VBG O2 Sat (Calc) 80 H VBG Base Excess 0 POC Mix VBG pCO2 Pt Tmp 64.8 H Respiration Rate 12 O2 Delivery Device BiPAP POC PEEP 6 Discharge Plan Triage Chief Complaint: Shortness of Breath ED Provider: Mickey Ruiz Dx/Rx/DC Orders Prescriptions: No Action Anoro Ellipta 62.5-25 mcg/actuation blister with device 1 ea INHALATION DAILY sildenafil 100 mg tablet 100 mg PO DAILY PRN (Reason: Sexual Activity) Patient Comments: Take one tablet by mouth 60 minutes prior to sexual activity. Not to exceed one tablet per 24 hours. For erectile dysfunction albuterol sulfate [Ventolin HFA] 1 INHALER HFA aerosol inhaler 2 puff inhalation Q6H azithromycin 500 mg tablet 500 mg PO DAILY 3 Days Qty: 3 0RF prednisone 10 mg tablet See Taper PO DAILY Qty: 30 0RF Taper: Prednisone Taper 40 mg WITH BREAKFAST for 3 Days and 0 Hour 30 mg WITH BREAKFAST for 3 Days and 0 Hour 20 mg WITH BREAKFAST for 3 Days and 0 Hour 10 mg WITH BREAKFAST for 3 Days and 0 Hour Primary Care Provider: Segun Valdez NP Referrals: Blaz,Segun CY[employer] SPECIAL AGENT, CYBER SPECIAL AGENT-C [Primary Care Provider] -
--- NOTE | 2023-08-30 10:35 | RAD_ITS ---
INDICATION: Shortness of breath EXAMINATION/TECHNIQUE: X-RAY - XR Chest 1 View COMPARISON: No relevant prior comparison study available FINDINGS: LINES/DEVICES: None. LUNGS: Hyperinflated lungs with COPD changes. No focal infiltrate. No evidence of pleural effusions. MEDIASTINUM AND CARDIOVASCULAR STRUCTURES: Cardiac silhouette not enlarged. Central airways and mediastinal contour are unremarkable. BONES AND SOFT TISSUES: No demonstrated acute osseous changes. RAD/Chest 1 View (Portable) IMPRESSION: 1. COPD changes. 2. No evidence of acute cardiopulmonary disease. Electronically Signed: Gigi Quarles MD at 8:36 EDT ,
[2023-08-30 10:57] LABS: Blood Gas Specimen Type VEN; O2 Delivery Device BiPAP; PEEP 6; RR 12; SITE Not entered; VBG BASE EXCESS 0 mmol/L (-1.0-3.5); VBG Bicarbonate 28 mmol/L (22-26); VBG PO2 53 mmHg (25-40); VBG SO2 80 % (50-70); VBG TCO2 30 mmol/L (23-33); VBG pCO2 64.8 mmHg (41-51); VBG pH 7.24 (7.32-7.42)
[2023-08-30 10:58] LABS: Absolute Lymphocyte Count 0.69 X10^3/uL (0.83-4.51); Absolute Neutrophil Count 4.6 X10^3/uL (2.0-7.7); Basophil# 0.03 X10^3/uL; Basophil% 0.5 % (0-1); Hematocrit 44.8 % (40-54); Hemoglobin 13.8 g/dL (13.0-16.5); Lymphocyte # 0.69 X10^3/ul (0.83-4.51); Lymphocyte % 11.9 % (19-41); Mean Corp Hgb Conc 30.8 g/dL (32-36); Mean Corpuscular Volume 90.9 fL (80-94); Mean Platelet Vol. 9.9 fl (6.2-12.0); Monocyte# 0.45 X10^3/uL; Monocyte% 7.8 % (0-10); NRBC Flagged by Analyzer 0 % (0-5); Neutrophil % 79.5 % (47-70); Platelet Count 208 K/mm3 (150-450); RBC Distribution Width CV 14.6 % (11.6-14.6); RBC Distribution Width SD 48.5 fl (35.1-43.9); Red Blood Count 4.93 M/mm3 (4.6-6.2); White Blood Count 5.8 K/mm3 (4.4-11.0)
[2023-08-30] MEDS: MethylPREDNISolone 125 MG/2 ML Vial IV (11:04)
[2023-08-30] MEDS: Ipratropium/Albuterol Sulfate 3 ML AMPUL.NEB INHALATION ×4 (11:05→22:44)
[2023-08-30] MEDS: Albuterol 2.5 MG/3 ML VIAL.NEB. INHALATION ×3 (11:05)
[2023-08-30 11:16] LABS: Anion Gap 6 (5-15); BUN 7 mg/dL (7-18); BUN/Creat Ratio 10.4 RATIO (10-20); Calcium,Total 8.7 mg/dL (8.5-10.1); Chloride 102 mmol/L (98-107); Creatinine, Serum 0.67 mg/dL (0.70-1.30); EST Glomerular Filtration Rate 124 mL/min (>60); Est Glom Filt Rate - Afr Amer 150 mL/min (>60); Estimated Creatinine Clearance 80.27 ml/min; Glucose 129 mg/dL (74-106); Potassium 4.3 mmol/L (3.5-5.1); Sodium Level 137 mmol/L (136-145); Troponin-I HS 7 pg/mL (3.0-78.0)
--- NOTE | 2023-08-30 13:01 | PCM.HP.STD ---
HPI - General General Date of Admission: 08/30/23 Date of Service: 08/30/23 Chief Complaint: Shortness of breath HPI Narrative ANA KAPOOR, is a 68 M who presented to the emergency department [facility] on 08/30/2023 complaining of shortness of breath. Patient reported that it started yesterday when he was driving back from his hunting property. He was coming up 77 and started having more shortness of breath. He states he was out in the rain and that is what he is attributing to his symptoms to. He denies any known sick contacts. He still smokes anywhere from a half a pack to 2 packs of cigarettes daily. He previously followed with Dr. Leticia Corral over at [facility] but has not seen her in some time. He has had no recent flares and no recent hospitalizations. He denies any significant change in his sputum production, consistency, or color. He wears oxygen only at night and states that he typically wears 2-1/2 L while sleeping but none during the day. He stated last night he had to turn up to 3-1/2 L and was still short of breath so he decided to come to the emergency department this morning. Vital signs on presentation showed a temperature of 97.9, heart rate 7 been anywhere from 100-109, blood pressure was 161/93 with a respiratory rate of 23 and oxygen saturations were initially 98% on 6 L but patient was having significant signs of respiratory extremis so he was placed on BiPAP to decrease his work of breathing. With BiPAP his sats were stable at 98% and his work of breathing decreased. His CBC is unremarkable. He does have a left shift with a 79.5% neutrophilia. A VBG was obtained and his pH was 7.27. Basic metabolic profile showed normal electrolytes and a normal serum bicarb with no renal dysfunction. His troponin was 7. Glucose was 129. His chest x-ray shows hyperinflation with flattened diaphragms consistent with COPD/emphysema. EKG shows sinus tachycardia without any ST-T wave changes concerning for acute ischemia. On exam he has severely diminished breath sounds diffusely with no significant wheezing at this time and poor air movement. On conversation he has dyspnea and resorts to pursed lip breathing frequently. In the emergency department he was given several aerosol treatments and Solu-Medrol. [facility] Medical History COPD (chronic obstructive pulmonary disease) History of back pain History of back problems Multiple sclerosis Myocardial infarct Smoker Stroke Home Medications albuterol sulfate 90 mcg/actuation aerosol inhaler (Ventolin HFA) 2 puff inhalation Q6H SOB 07/10/21 [History Last Taken 07/10/21] sildenafil 100 mg tablet 100 mg PO DAILY PRN Sexual Activity 07/10/21 [History Last Taken Unknown] umeclidinium 62.5 mcg-vilanterol 25 mcg/actuation powdr for inhalation (Anoro Ellipta) 1 ea inhalation DAILY SOB 07/10/21 [History Last Taken 07/10/21] azithromycin 500 mg tablet 500 mg PO DAILY 3 days #3 tabs 07/11/21 [Rx Last Taken Unknown] prednisone 10 mg tablet See Taper PO DAILY #30 tabs 07/11/21 [Rx Last Taken Unknown] Allergy/AdvReac Type Severity Reaction Status Date / Time Penicillins Allergy Upset Verified 08/30/23 10:15 Stomach Family History Father Myocardial infarction no surgical history Social History (Updated 08/30/23 @ 13:[address] Mariela Leal DO) household members: none Smoking Status: Current every day smoker tobacco type: cigarettes Smoking packs per day: 2 Smoking cigarettes per day: 40.0 how long ago did patient quit smoking: Currently smoking anywhere from 1/2 to 2 packs of cigarettes daily quit status: not considering quitting alcohol intake: current alcohol intake frequency: a few times a month substance use type: does not use ROS Constitutional Constitutional: Denies anorexia, change in weight, chills, fatigue, fever(s), malaise, night sweats, weakness or other Eyes Eyes: Denies blurry vision, change in eye color, change in vision, discharge from eye(s), double vision, erythema, eye pain, loss of vision or other ENT HEENT: Denies abnormal hearing, dysphagia, ear pain, epistaxis, headache(s), hearing loss, nasal congestion, nasal discharge, post nasal drip, sinus pressure, sore throat or other Cardiovascular Cardiovascular: Denies chest pain, claudication, dyspnea on exertion, edema, lightheadedness, orthopnea, palpitations, paroxysmal nocturnal dyspnea, rapid heart rate, syncope or other Respiratory/Chest Respiratory/Chest: Reports cough, dyspnea, shortness of breath at rest, shortness of breath with exertion, wheezing and other Details: Patient does have sputum production but denies any production above his baseline with no change in color ; Denies excessive phlegm production, hemoptysis or productive cough Gastrointestinal Gastrointestinal: Denies abdominal pain, coffee ground emesis, constipation, diarrhea, dyspepsia, hematemesis, hematochezia, loose stools, melena, nausea, vomiting or other Genitourinary Genitourinary: Denies burning urination, difficulty urinating, dysuria, hematuria, nocturia, urinary frequency, urinary hesitancy, urinary incontinence, urinary urgency or other Musculoskeletal Musculoskeletal: Denies arthralgias, back pain, joint pain, joint stiffness, joint swelling, myalgias, neck pain or other Neurologic Neurologic: Denies abnormal gait, abnormal speech, confusion, disequilibrium, dizziness, focal weakness, headache(s), numbness, paresthesias, seizure-like activity, seizures, syncope, tingling, tremor(s) or other Psychiatric Psychiatric: Denies anxiety, depression, homicidal ideation, suicidal ideation or other Endocrine Endocrinology: Denies change in body appearance, cold intolerance, excessive sweating, heat intolerance, polydipsia, polyuria or other Hematologic/Lymphatic Hematologic/Lymphatic: Denies anemia, easy bleeding, easy bruising, lymphadenopathy or other Allergic/Immunologic Allergic/Immunologic: Denies rhinitis, hives, eczemia, asthma or other Vital Signs Vital Signs Vital Signs: 08/30/23 10:06 08/30/23 10:16 08/30/23 11:06 Temperature 97.9 F Temperature Source Temporal Pulse Rate 101 H Respiratory Rate 23 H Respiratory Effort Short of Breath Respiratory Depth Shallow Respiratory Pattern Tachypnea Blood Pressure 161/93 H Blood Pressure Mean 115 Pulse Ox 98 Oxygen Delivery Method Nasal Cannula Bi-pap Oxygen Flow Rate (L/min) 6 Fraction of Inspired Oxygen (FIO2) 08/30/23 11:06 08/30/23 11:03 08/30/23 10:30 Temperature 97.8 F Temperature Source Temporal Pulse Rate 109 H 108 H Respiratory Rate 19 H 18 25 H Respiratory Effort Respiratory Depth Respiratory Pattern Blood Pressure 151/86 H 151/86 H Blood Pressure Mean 107 107 Pulse Ox 98 98 96 Oxygen Delivery Method Bi-pap Bi-pap Oxygen Flow Rate (L/min) Fraction of Inspired Oxygen (FIO2) 40 08/30/23 11:05 08/30/23 12:00 08/30/23 12:00 Temperature 97.8 F Temperature Source Temporal Pulse Rate 110 H 106 H 106 H Respiratory Rate 24 H 19 H 20 H Respiratory Effort Respiratory Depth Respiratory Pattern Blood Pressure 138/70 H 138/70 H Blood Pressure Mean 92 92 Pulse Ox 98 98 Oxygen Delivery Method Bi-pap Bi-pap Oxygen Flow Rate (L/min) Fraction of Inspired Oxygen (FIO2) Weight Weight: 65.12 kg Body Mass Index (BMI) 18.9 Physical Exam Const alert and oriented x3; Negative for no apparent distress, average body habitus, healthy appearing or well nourished Constitutional Narrative: Cachectic, upper middle-aged, white male, sitting up in bed, appears older than stated age, intermittent pursed lip breathing with conversational dyspnea, no signs of extremis currently, nontoxic General Appearance: cooperative HEENT normocephalic, head/scalp atraumatic and moist oral mucous membranes HEENT Narrative: Dentures in place, Mallampati 1, no thrush, mild hearing loss Eyes PERRL, EOMs intact bilaterally and conjunctivae normal Eyes Narrative: No scleral icterus Neck no lymphadenopathy and supple Neck Narrative: Trachea midline, thyroid not enlarged with no palpated nodules Resp No normal respiratory effort, no retractions, no use of accessory muscles and No clear to auscultation bilaterally Resp Narrative: Markedly diminished diffusely with no adventitious sounds but extremely poor air movement, pursed lip breathing with tachypnea but no current signs of extremis Auscultation: Negative for rales, rhonchi or wheezes Cardio regular rhythm, S1 normal heart sound, S2 normal heart sound, no murmurs, no rub, no gallops and no clicks Cardio Narrative: Mild tachycardia GI normal to inspection, nondistended, normoactive bowel sounds, soft to palpation and non-tender Extremity no clubbing, cyanosis or edema Extremity Narrative: Decreased lean muscle mass, pedal pulses are 1+ bilateral lower extremities, 2+ radial Skin no rashes or lesions noted, no wounds, skin turgor normal, no jaundice, no petechiae and no mottling Neuro oriented x3, CN's II-XII intact bilaterally, moves all extremities and no focal motor deficits Speech: speech normal Psych affect normal Psych Narrative: Eye contact is good, patient interacts appropriately Results Lab / Micro Data 08/30/23 10:50 08/30/23 10:50 Labs: Laboratory Results - last 24 hr 08/30/23 10:50: WBC 5.8, RBC 4.93, Hgb 13.8, Hct 44.8, MCV 90.9, MCH 28.0, MCHC 30.8 L, RDW Std Deviation 48.5 H, RDW Coeff of Kelsea 14.6, Plt Count 208, MPV 9.9, Immature Gran % (Auto) 0.300, Neut % (Auto) 79.5 H, Lymph % (Auto) 11.9 L, [place] % (Auto) 7.8, Eos % (Auto) 0.0, Baso % (Auto) 0.5, Absolute Neuts (auto) 4.6, Absolute Lymphs (auto) 0.69 L, Nucleated RBC % 0, Sodium 137, Potassium 4.3, Chloride 102, Carbon Dioxide 29.0, Anion Gap 6, BUN 7, Creatinine 0.67 L, Estim Creat Clear Calc 80.27, Est GFR (MDRD) Af Amer 150, Est GFR (MDRD) Non-Af 124, BUN/Creatinine Ratio 10.4, Glucose 129 H, Calcium 8.7, Troponin I High Sens 7 Micro: Microbiology 08/30/23 10:50 Mucosa - Nasopharyngeal SARS-CoV-2, Influenza & RSV (PCR) - Final ABG Data ABG results: ABG 08/30/23 10:53 Specimen Type SONU Sample Site Not entered O2 % 40.0 VBG pH 7.24 L VBG pO2 53 H VBG HCO3 28 H VBG Total CO2 30 VBG O2 Sat (Calc) 80 H VBG Base Excess 0 POC Mix VBG pCO2 Pt Tmp 64.8 H Respiration Rate 12 O2 Delivery Device BiPAP POC PEEP 6 Assessment & Plan Assessment/Plan (1) Acute hypoxic respiratory failure: (2) Chronic hypoxic respiratory failure: (3) Respiratory acidosis: (4) COPD with acute exacerbation: (5) Pulmonary cachexia due to COPD: (6) Tachycardia: (7) Hyperglycemia: PLAN: Plan Acute on chronic hypoxic respiratory failure secondary to acute exacerbation of COPD -Required rescue BiPAP on presentation and I do feel that he still may need further BiPAP so we will admit to ICU as patient is full code -Currently on 4 L nasal cannula with intermittent pursed lip breathing and ongoing tachypnea and conversational dyspnea -At baseline wears 2.5 L with sleep -Will need ambulatory pulse ox prior to discharge -Chest x-ray with marked hyperinflation but no infiltrate -Since severe flare will start antibiotics with Levaquin 750 mg daily and check sputum culture -Check strep pneumo and Legionella antigens -COVID/flu/RSV negative -Check respiratory viral panel -Solu-Medrol 40 every 8 -Scheduled and as needed nebulizers -I-S -Acapella 10 times every 2 hours while awake -N.p.o. for now until work of breathing seems to normalize and patient consistently off BiPAP -Strongly encouraged tobacco cessation -Previously followed Dr. Leticia Corral but has not seen her in a long time -Consult pulmonary/critical care medicine Respiratory acidosis -VBG with a pH of 7.24 -Repeat ABG is pending and patient may need further rescue BiPAP depending on ABG results -Marked decreased air movement on exam Tachycardia -Will monitor on telemetry for now -Likely related to the above Hyperglycemia -May be stress response -check hemoglobin A1c -Accu-Cheks every 6 hours for now and transition to before meals and at bedtime once p.o. diet can be initiated Pulmonary cachexia -Highly suspect severe malnutrition -Dietitian consulted -Supplements added 3 times daily between meals COPD -It does not appear patient is on any baseline medications however med reconciliation has not yet been performed -Patient in high need of triple therapy and outpatient pulmonary follow-up Tobacco abuse -Encouraged cessation -21 mcg nicotine patch placed -Counseled prior to admission but patient seems reluctant to quit DVT prophylaxis -Lovenox subcu 40 daily CODE STATUS -Full code as verified on admission but patient would like to think further about this I did inform him he could changes his decision at any time during his hospitalization. Charges/Coding Visit Charges Inpatient E&M: 53677 Init Hosp L3
[2023-08-30 14:58] LABS: Allen Test Positive; Base Excess 1 mmol/L (-2 to +2); Bicarbonate 26.4 mmol/L (22-26); Blood Gas Specimen Type ART; O2 Delivery Device BiPAP; PEEP 6; PO2 135 mmHG (75-100); RR 12; SITE R Radial; SO2 99 % (95-99); Total Carbon Dioxide 28 mmol/L; pCO2 48.2 mmHg (35-45); pH 7.35 (7.35-7.45)
[2023-08-30 15:53] LABS: Hemoglobin A1c 5.3 % (3.8-5.6)
[2023-08-30] MEDS: levoFLOXacin IV 750 MG/150 ML BAG 100 MG IV (15:58)
--- NOTE | 2023-08-30 16:55 | CT_ITS ---
EXAM: CT ANGIOGRAPHY CHEST WITHOUT AND WITH INTRAVENOUS CONTRAST CLINICAL INDICATION: rule out PE TECHNIQUE: Helically acquired angiography images were obtained of the chest without and with intravenous contrast. This CT exam was performed using one or more of the following dose reduction techniques: automated exposure control, adjustment of the mA and/or kV according to patient size, and/or use of iterative reconstruction technique. MIP reconstructed images were created and reviewed. CONTRAST: IV 100mL Isovue-370 RADIATION DOSE: CTDIvol = 6.84 mGy, DLP = 252.38 mGy-cm COMPARISON: No relevant prior studies available. FINDINGS: PULMONARY ARTERIES: Unremarkable. No demonstrated pulmonary embolism or arterial dissection. AORTA: There is atherosclerotic calcification of the aortic arch with tortuosity and elongation of the aortic arch and descending thoracic aorta. Normal in caliber. No evidence of dissection. GREAT VESSELS OF AORTIC ARCH: Unremarkable. Normal in caliber. No evidence of dissection. LUNGS AND PLEURAL SPACES: Pulmonary emphysema. No mass. No pleural effusion or thickening. No pneumothorax. HEART: There are calcifications of the coronary arteries. Heart size is normal. No pericardial effusion. MEDIASTINUM: Unremarkable. No mediastinal or hilar adenopathy. Esophagus is unremarkable. No hiatal hernia. THYROID: Unremarkable. No thyroid lesions. BONES/JOINTS: There are degenerative changes of the shoulders. There are multi-level degenerative changes of the thoracic spine. No suspicious lytic or blastic abnormality. OTHER FINDINGS: Post-processing of the angiographic images was performed, with axial imaging and 3D reconstruction. MIPS images were obtained. CT/CTA Chest W/WO Contrast IMPRESSION: No demonstrated pulmonary embolism or arterial dissection. Electronically Signed: Jhonatan Malhotra MD at 17:45 EDT ,
[2023-08-30 18:50] LABS: M R Staph aureus DNA By PCR Negative (Negative); Probe Check PASS; Specimen Processing Control PASS
[2023-08-30 19:16] LABS: Bedside Glucose 143 mg/dL (74-106)
[2023-08-30] MEDS: guaiFENesin 1,200 MG Tablet 1200 MG PO (20:17)
[2023-08-30] MEDS: 0.9% Saline Lock 10 ML Syringe IV (20:18)
[2023-08-30] MEDS: BENZOCAINE/MENTHOL 1 LOZENGE MUCOUS MEM (20:18)
[2023-08-31] VITALS (19 sets, daily range): BP systolic 102–144; BP diastolic 72–92; PULSE 64–115; RESP 12–46; TEMP 36.3–36.8; O2SAT 93–99; BMI 17.9
[2023-08-31] LABS: Bedside Glucose 134 mg/dL (74-106)
[2023-08-31] MEDS: Albuterol 2.5 MG/3 ML VIAL.NEB. INHALATION (01:41)
[2023-08-31] MEDS: hydrOXYzine 50 MG/ML Vial 100 MG IM (02:24)
--- NOTE | 2023-08-31 04:03 | CPS ---
Patient only wore bipap for a couple hours. RT attempted to get patient to wear bipap multiple times throughout the night due to his shortness of breath, however patient refused. Patient now sleeping comfortably, 96% on 3L
[2023-08-31 04:27] LABS: Absolute Lymphocyte Count 0.28 X10^3/uL (0.83-4.51); Absolute Neutrophil Count 5.6 X10^3/uL (2.0-7.7); Basophil# 0.02 X10^3/uL; Basophil% 0.3 % (0-1); Hemoglobin 13.3 g/dL (13.0-16.5); Lymphocyte # 0.28 X10^3/ul (0.83-4.51); Lymphocyte % 4.6 % (19-41); Mean Corp Hgb Conc 30.9 g/dL (32-36); Mean Corpuscular Hgb 27.9 pg (27.0-32.0); Mean Corpuscular Volume 90.3 fL (80-94); Mean Platelet Vol. 8.7 fl (6.2-12.0); Monocyte# 0.24 X10^3/uL; Monocyte% 3.9 % (0-10); NRBC Flagged by Analyzer 0 % (0-5); Neutrophil # 5.56 X10^3/uL (2.7-7.7); POSITIVE DIFFERENTIAL YES; Platelet Count 182 K/mm3 (150-450); RBC Distribution Width CV 14.5 % (11.6-14.6); RBC Distribution Width SD 48.1 fl (35.1-43.9); Red Blood Count 4.76 M/mm3 (4.6-6.2); White Blood Count 6.1 K/mm3 (4.4-11.0)
[2023-08-31 04:53] LABS: ALB/GLOB Ratio 0.8 RATIO (0.9-2.4); AST(SGOT) 20 U/L (15-37); Alanine Aminotransfer ALT/SGPT 17 U/L (16-61); Albumin, Serum 3.2 g/dL (3.2-5.0); Alkaline Phosphatase 63 U/L (45-117); Anion Gap 4 (5-15); BUN 9 mg/dL (7-18); BUN/Creat Ratio 11.9 RATIO (10-20); Calcium,Total 8.6 mg/dL (8.5-10.1); Chloride 106 mmol/L (98-107); Creatinine, Serum 0.76 mg/dL (0.70-1.30); EST Glomerular Filtration Rate 109 mL/min (>60); Est Glom Filt Rate - Afr Amer 132 mL/min (>60); Estimated Creatinine Clearance 77.88 ml/min; Globulin 3.8 g/dL (2.2-4.2); Glucose 142 mg/dL (74-106); Potassium 4.6 mmol/L (3.5-5.1); Sodium Level 140 mmol/L (136-145); Thyroid Stim Hormone (TSH) 0.33 uIU/mL (0.358-3.74)
[2023-08-31 06:11] LABS: Bedside Glucose 105 mg/dL (74-106)
[2023-08-31] MEDS: Ipratropium/Albuterol Sulfate 3 ML AMPUL.NEB INHALATION ×5 (07:15→23:01)
--- NOTE | 2023-08-31 07:29 | CON.PCM.CC_ITS ---
Assessment & Plan Assessment/Plan (1) COPD with acute exacerbation: PLAN: Plan RECOMMENDATIONS: 1. Supplemental oxygen to maintain saturations at or above 90%. 2. Recommend empiric PAP therapy with naps and nightly. 3. Continue bronchodilators along with IV corticosteroids. 4. Continue empiric antibiotics, pending finalized sputum culture results. 5. Continue appropriate DVT prophylaxis. 6. Nicotine replacement therapy. 7. Encourage incentive spirometer use and mobilize patient as tolerated. 8. The patient is medically stable for transfer out of the intensive care unit. IMPRESSIONS: 1. Acute on chronic hypoxemic respiratory failure Most likely secondary to COPD exacerbation precipitated by parainfluenza infection. The patient has a known history of advanced age COPD and is currently on a triple therapy inhaler regimen, under the care of Dr. Leticia Corral of pulmonary medicine at [facility]. The patient reported a baseline oxygen requirement of approximately 3 L/min. For now, he will be continued on scheduled bronchodilators, corticosteroids and empiric antibiotics, pending finalized sputum culture results. If sputum culture is negative, antibiotics can be discontinued. I would recommend to continue empiric PAP therapy with naps and nightly. Encourage incentive spirometer use and mobilize patient as to lerated. The patient will need to resume his triple therapy inhaler regimen at discharge and follow-up with his primary pulmonary provider. 2. History of tobacco dependency/pulmonary cachexia Complicates care, management, recovery and prognosis. Continue current support sunil measures. Nicotine replacement therapy can be offered to the patient while admitted to the hospital. This note was generated with [employer] dictation software. It may contain incorrect words, spelling, and punctuation that were not noted in checking the note before signing. HPI Consult Data Date of Consult: 08/31/23 HPI Narrative Reason for Consultation: Acute on chronic hypoxemic respiratory failure HPI Narrative: The patient is a 68-year-old male, with a history as outlined below, who presented to the emergency department via EMS on August 29 with shortness of breath. The patient reported that he developed rather acute onset dyspnea after driving back from his hunting property in [facility]. The patient has been under the care of Dr. Leticia Corral of pulmonary medicine at [facility]. However, the patient has not followed up with her in quite some time. He does have an extensive tobacco abuse history and continues to smoke cigarettes daily. The patient reported that he typically utilizes 3 L/min of supplemental oxygen at his baseline. He has a known history of COPD and is currently on a triple therapy inhaler regimen on an outpatient basis. On presentation to the emergency department, the patient was documented to be afebrile and hemodynamically stable. Initial laboratory evaluation revealed a normal white blood cell count. D-dimer was mildly elevated at 1.2. Chemistry profile was unrevealing. Respiratory viral panel was positive for parainfluenza. Sputum culture is pending. CTA chest showed no evidence for pulmonary embolism. However, bilateral emphysematous changes were noted. The patient was placed empirically on antimicrobials, bronchodilators and steroids. The patient ultimately required noninvasive positive pressure ventilatory support. Therefore, he was admitted to the medical intensive care unit for further management. [facility] Medical History COPD (chronic obstructive pulmonary disease) History of back pain History of back problems Multiple sclerosis Myocardial infarct Smoker Stroke Home Medications albuterol sulfate 90 mcg/actuation aerosol inhaler (Ventolin HFA) 2 puff inhalation Q6H SOB 07/10/21 [History Last Taken 07/10/21] sildenafil 100 mg tablet 100 mg PO DAILY PRN Sexual Activity 07/10/21 [History Last Taken Unknown] umeclidinium 62.5 mcg-vilanterol 25 mcg/actuation powdr for inhalation (Anoro Ellipta) 1 ea inhalation DAILY SOB 07/10/21 [History Last Taken 07/10/21] tamsulosin 0.4 mg capsule 0.4 mg PO QHS BPH 08/30/23 [History Last Taken 08/29/23] Allergy/AdvReac Type Severity Reaction Status Date / Time Penicillins Allergy Upset Verified 08/30/23 10:15 Stomach Family History Father Myocardial infarction Surgical History no surgical history Social History (Updated 08/30/23 @ 13:[address] Mariela Leal DO) household members: none Smoking Status: Current every day smoker tobacco type: cigarettes how long ago did patient quit smoking: Currently smoking anywhere from 1/2 to 2 packs of cigarettes daily quit status: not considering quitting alcohol intake: current alcohol intake frequency: a few times a month substance use type: does not use ROS ROS Narrative 10 systems were reviewed with pertinent positives as noted in the HPI above. Physical Exam Const alert and no apparent distress General Appearance: cooperative HEENT normocephalic, head/scalp atraumatic and moist oral mucous membranes Eyes PERRL, EOMs intact bilaterally and conjunctivae normal Neck supple General: trachea midline Chest Chest Narrative: Increased AP diameter. Resp normal respiratory effort Auscultation: diminished lung sounds; Negative for rales, rhonchi or wheezes Cardio regular rate and regular rhythm GI normal to inspection, nondistended, normoactive bowel sounds Extremity no clubbing, cyanosis or edema Skin no rashes or lesions noted Neuro CN's II-XII intact bilaterally, moves all extremities and no focal motor deficits Psych cooperative and affect normal Lab / Micro Data 08/31/23 04:18 08/31/23 04:18 Labs: Laboratory Results - last 24 hr 08/30/23 10:50: WBC 5.8, RBC 4.93, Hgb 13.8, Hct 44.8, MCV 90.9, MCH 28.0, MCHC 30.8 L, RDW Std Deviation 48.5 H, RDW Coeff of Kelsea 14.6, Plt Count 208, MPV 9.9, Immature Gran % (Auto) 0.300, Neut % (Auto) 79.5 H, Lymph % (Auto) 11.9 L, [place] % (Auto) 7.8, Eos % (Auto) 0.0, Baso % (Auto) 0.5, Absolute Neuts (auto) 4.6, Absolute Lymphs (auto) 0.69 L, Nucleated RBC % 0, Sodium 137, Potassium 4.3, Chloride 102, Carbon Dioxide 29.0, Anion Gap 6, BUN 7, Creatinine 0.67 L, Estim Creat Clear Calc 80.27, Est GFR (MDRD) Af Amer 150, Est GFR (MDRD) Non-Af 124, BUN/Creatinine Ratio 10.4, Glucose 129 H, Calcium 8.7, Troponin I High Sens 7 08/30/23 15:10: D-Dimer Quant (PE/DVT) 1.20 H*, Hemoglobin A1c 5.3 08/30/23 17:00: MRSA (PCR) Negative 08/30/23 18:49: POC Glucose 143 H 08/30/23 23:43: POC Glucose 134 H 08/31/23 04:18: WBC 6.1, RBC 4.76, Hgb 13.3, Hct 43.0, MCV 90.3, MCH 27.9, MCHC 30.9 L, RDW Std Deviation 48.1 H, RDW Coeff of Kelsea 14.5, Plt Count 182, MPV 8.7, Immature Gran % (Auto) 0.200, Neut % (Auto) 91.0 H, Lymph % (Auto) 4.6 L, [place] % (Auto) 3.9, Eos % (Auto) 0.0, Baso % (Auto) 0.3, Absolute Neuts (auto) 5.6, Absolute Lymphs (auto) 0.28 L, Nucleated RBC % 0, Sodium 140, Potassium 4.6, Chloride 106, Carbon Dioxide 30.0, Anion Gap 4 L, BUN 9, Creatinine 0.76, Estim Creat Clear Calc 77.88, Est GFR (MDRD) Af Amer 132, Est GFR (MDRD) Non-Af 109, BUN/Creatinine Ratio 11.9, Glucose 142 H, Calcium 8.6, Phosphorus 3.0, Magnesium 2.0, Total Bilirubin 0.60, AST 20, ALT 17, Alkaline Phosphatase 63, Total Protein 7.0, Albumin 3.2, Globulin 3.8, Albumin/Globulin Ratio 0.8 L, TSH 0.33 L 08/31/23 05:50: POC Glucose 105 Micro: Microbiology 08/30/23 18:50 Urine, Random Legionella Antigen - Final 08/30/23 18:50 Urine, Random Streptococcus pneumoniae Antigen (M - Final 08/30/23 14:49 Mucosa - Nasopharyngeal Respiratory Panel (PCR) - Final Parainfluenza 3 08/30/23 10:50 Mucosa - Nasopharyngeal SARS-CoV-2, Influenza & RSV (PCR) - Final ABG Data ABG results: ABG 08/30/23 08/30/23 10:53 14:54 Specimen Type SONU ART Sample Site Not entered R Radial pH 7.35 Bicarbonate Actual 26.4 H Total CO2 28 Base Excess 1 O2 Saturation 99 O2 % 40.0 35.0 ABG pCO2 48.2 H ABG pO2 135 H Brandt Test Positive VBG pH 7.24 L VBG pO2 53 H VBG HCO3 28 H VBG Total CO2 30 VBG O2 Sat (Calc) 80 H VBG Base Excess 0 POC Mix VBG pCO2 Pt Tmp 64.8 H Respiration Rate 12 12 O2 Delivery Device BiPAP BiPAP Vent Mode st POC PEEP 6 6 Imaging Radiology Impression Chest CTA 08/30/23 16:55 IMPRESSION: No demonstrated pulmonary embolism or arterial dissection. Electronically Signed: Jhonatan Malhotra MD at 17:45 EDT Reading Location ID and State: [facility] / [place] , Service support , Charges/Coding Visit Charges Inpatient E&M: 81910 Init Hosp L3
[2023-08-31] MEDS: levoFLOXacin IV 750 MG/150 ML BAG 100 MG IV (09:57)
[2023-08-31] MEDS: Ensure Plus High Protein 120 ML LIQUID PO (09:57)
[2023-08-31] MEDS: Enoxaparin 40 MG/0.4 ML Syringe SC (09:58)
[2023-08-31] MEDS: guaiFENesin 1,200 MG Tablet 1200 MG PO ×2 (09:58→20:26)
--- NOTE | 2023-08-31 10:22 | CASEMGMT ---
TELLO SNELL Assessment Face to Face with patient for initial transition planning/care coordination assessment. TELLO SNELL introduced self and role at [facility], pt voices understanding. Pt is A&Ox4 and is resting comfortably in bed and is calm. Care providers, pharmacy, and demographics verified. Admitting dx: Acute Hypoxic RF LACE Strata: 2 PCP: Segun Valdez Specialists: Leticia Corral (Pulmonary) [facility] Prescription Benefit: Yes LNOK: Pt denies having any contacts to list. He states he has lost a lot of friends/family in recent years Living Arrangements: Pt lives alone in a mobile home with 5 steps to enter ADLs/IADLs: States that he is normally ind and that he still works when he is able to Transportation: Self. Pt drives for his work DME: Pt states that he wears 3.5L of O2 at HS through [employer]. Pt states that he has a concentrator, portable tanks, and a Pulse Ox. Email sent to Russell from [employer] to verify pt current Rx. Pt also states that he has a cane at home HHC/SNF: Pt denies history. Pt states that Home health does not work for my schedule. Pt?s goal: Return to PLOF and return to work Plan: TBD. Therapy evals pending. Pt states that if he is able to return to work, then he would not like HH or OP therapy d/t his schedule. Pt states that if he is unable to return to work, he then may be interested in HHC or OP therapy. CM to follow pt progression in the hospital to see what he best qualifies for. To follow for increased O2 needs as well. Diony Hammond RN, CM
[2023-08-31 13:14] LABS: Bedside Glucose 120 mg/dL (74-106)
[2023-08-31 17:41] LABS: Bedside Glucose 129 mg/dL (74-106)
--- NOTE | 2023-08-31 17:50 | PCM.PN.HOSP ---
Reason for Visit Reason for Visit: Diagnoses Other acidosis (08/30/23) Chronic obstructive pulmonary disease with (acute) exacerbation (08/30/23) Chronic obstructive pulmonary disease, unspecified (08/30/23) Acute respiratory failure with hypoxia (08/30/23) Chronic respiratory failure with hypoxia (08/30/23) Tachycardia, unspecified (08/30/23) Cachexia (08/30/23) Hyperglycemia, unspecified (08/30/23) Subjective Subjective Patient was seen and examined today, talked briefly with pulmonary medicine about his care, patient has been alternating between nasal cannula oxygen and BiPAP today. Patient's respiratory panel was positive for parainfluenza 3. Patient will remain on IV Levaquin for now until we get a final respiratory culture result. Objective Data Objective Data Vital Signs: Vital Signs Temp Pulse Resp BP Pulse Ox O2 Del Method O2 Flow Rate 97.4 F L 100 19 H 114/82 H 96 Bi-pap 2 08/31/23 15:00 08/31/23 15:00 08/31/23 15:00 08/31/23 15:00 08/31/23 15:00 08/31/23 15:00 08/31/23 15:28 FiO2 25 08/31/23 15:00 Oxygen Flow Rate (L/min) 2 Oxygen Delivery Method Bi-pap Weight: 63.185 kg Body Mass Index (BMI) 17.9 Intake & Output: Intake and Output for Last 24 Hours 08/29/23 08/30/23 08/31/23 23:59 23:59 23:59 Intake Total 150 / 390 1110 / 1110 Output Total 1725 / 1725 Balance 150 / -485 -615 / -615 Lab / Micro Data 08/31/23 04:18 08/31/23 04:18 Labs: Laboratory Results - last 24 hr 08/30/23 17:00: MRSA (PCR) Negative 08/30/23 18:49: POC Glucose 143 H 08/30/23 23:43: POC Glucose 134 H 08/31/23 04:18: WBC 6.1, RBC 4.76, Hgb 13.3, Hct 43.0, MCV 90.3, MCH 27.9, MCHC 30.9 L, RDW Std Deviation 48.1 H, RDW Coeff of Kelsea 14.5, Plt Count 182, MPV 8.7, Immature Gran % (Auto) 0.200, Neut % (Auto) 91.0 H, Lymph % (Auto) 4.6 L, Johnson % (Auto) 3.9, Eos % (Auto) 0.0, Baso % (Auto) 0.3, Absolute Neuts (auto) 5.6, Absolute Lymphs (auto) 0.28 L, Nucleated RBC % 0, Sodium 140, Potassium 4.6, Chloride 106, Carbon Dioxide 30.0, Anion Gap 4 L, BUN 9, Creatinine 0.76, Estim Creat Clear Calc 77.88, Est GFR (MDRD) Af Amer 132, Est GFR (MDRD) Non-Af 109, BUN/Creatinine Ratio 11.9, Glucose 142 H, Calcium 8.6, Phosphorus 3.0, Magnesium 2.0, Total Bilirubin 0.60, AST 20, ALT 17, Alkaline Phosphatase 63, Total Protein 7.0, Albumin 3.2, Globulin 3.8, Albumin/Globulin Ratio 0.8 L, TSH 0.33 L 08/31/23 05:50: POC Glucose 105 08/31/23 12:52: POC Glucose 120 H 08/31/23 17:14: POC Glucose 129 H Micro: Microbiology 08/30/23 20:20 Sputum, Expectorated/Coughed Gram Stain - Final 08/30/23 18:50 Urine, Random Legionella Antigen - Final 08/30/23 18:50 Urine, Random Streptococcus pneumoniae Antigen (M - Final 08/30/23 14:49 Mucosa - Nasopharyngeal Respiratory Panel (PCR) - Final Parainfluenza 3 08/30/23 10:50 Mucosa - Nasopharyngeal SARS-CoV-2, Influenza & RSV (PCR) - Final Physical Exam Const alert and oriented x3 Constitutional Narrative: Patient appears older than his stated age General Appearance: cooperative, well kempt and well developed Orientation / Consciousness: awake, oriented to person, oriented to place and oriented to time HEENT normocephalic, head/scalp atraumatic and moist oral mucous membranes Eyes PERRL, EOMs intact bilaterally and conjunctivae normal Neck supple, no JVD, thyroid normal and no carotid bruits General: trachea midline Resp Resp Narrative: Patient has expiratory rhonchi bilaterally Auscultation: rhonchi; Negative for rales or wheezes Cardio regular rate, regular rhythm, S1 normal heart sound, S2 normal heart sound, no murmurs, no rub and no gallops GI normal to inspection, nondistended, normoactive bowel sounds, soft to palpation, non-tender and non-distended Extremity no clubbing, cyanosis or edema Skin no rashes or lesions noted General Skin Exam: no breakdown Neuro oriented x3, CN's II-XII intact bilaterally, moves all extremities, no focal motor deficits and no sensory deficits noted Sensorium / Orientation: awake and alert Speech: speech normal Psych affect normal Assessment & Plan Assessment/Plan (1) COPD with acute exacerbation: PLAN: Plan 1. Acute on chronic hypoxic respiratory failure secondary to exacerbation of COPD and parainfluenza 3 pneumonitis-again Levaquin will be continued for now, patient is on IV steroids and aerosol treatments, pulmonary medicine is participating in his care #2 exacerbation of COPD-again patient is receiving aerosol treatments and IV corticosteroids at this time, IV antibiotics will be continued for now #3 parainfluenza 3 pneumonitis-complicates care, management, recovery, and prognosis Total clinical time spent by myself addressing the patient's medical issues, reviewing all of his data, and collaborating with patient's care team: 35 minutes Charges/Coding Visit Charges Inpatient E&M: 36997 Subs Hosp L2
[2023-08-31 19:17] LABS: BNP,B-Type NATRIURETIC PEPTIDE 65.6 pg/mL (0-100)
[2023-08-31] MEDS: 0.9% Saline Lock 10 ML Syringe IV (20:28)
[2023-08-31] MEDS: Insulin Lispro 100 UNIT/ML INSULN.PEN SC (23:59)
[2023-09-01] VITALS (15 sets, daily range): BP systolic 102–130; BP diastolic 74–97; PULSE 80–98; RESP 12–35; TEMP 36.3–36.9; O2SAT 92–97; BMI 17.7
[2023-09-01 00:18] LABS: Bedside Glucose 157 mg/dL (74-106)
[2023-09-01 06:26] LABS: Bedside Glucose 106 mg/dL (74-106)
[2023-09-01] MEDS: 0.9% Saline Lock 10 ML Syringe IV ×2 (06:53→21:12)
[2023-09-01] MEDS: Ipratropium/Albuterol Sulfate 3 ML AMPUL.NEB INHALATION ×5 (07:05→23:45)
--- NOTE | 2023-09-01 07:23 | PCM.PN.INT ---
Assessment & Plan Assessment/Plan (1) COPD with acute exacerbation: PLAN: Plan RECOMMENDATIONS: 1. Supplemental oxygen to maintain saturations at or above 90%. 2. Recommend empiric PAP therapy with naps and nightly. 3. Continue bronchodilators along with IV corticosteroids. 4. Continue antimicrobials to complete 7 days of therapy. 5. Continue appropriate DVT prophylaxis. 6. Nicotine replacement therapy. 7. Encourage incentive spirometer use and mobilize patient as tolerated. IMPRESSIONS: 1. Acute on chronic hypoxemic respiratory failure Most likely secondary to COPD exacerbation precipitated by parainfluenza infection, coupled with superimposed Streptococcus pneumonia. The patient has a known history of advanced age COPD and is currently on a triple therapy inhaler regimen, under the care of Dr. Leticia Corral of pulmonary medicine at [facility]. The patient reported a baseline oxygen requirement of approximately 3 L/min. For now, he will be continued on scheduled bronchodilators and corticosteroids. Antibiotics will be continued to complete 7 days of therapy. I would recommend to continue empiric PAP therapy with naps and nightly. Encourage incentive spirometer use and mobilize patient as tolerated. The patient will need to resume his triple therapy inhaler regimen at discharge and follow-up with his primary pulmonary provider. 2. History of tobacco dependency/pulmonary cachexia Complicates care, management, recovery and prognosis. Continue current supportive measures. Nicotine replacement therapy can be offered to the patient while admitted to the hospital. This note was generated with [employer] dictation software. It may contain incorrect words, spelling, and punctuation that were not noted in checking the note before signing. Subjective Subjective The patient was seen and examined at the bedside this morning. Events from the last 24 hours have been reviewed. The patient is currently afebrile, hemodynamically stable and maintaining appropriate oxygen saturations on 2 L/min via nasal cannula. No overnight events were noted by the nursing staff. Objective Data Objective Data The patient's most recent lab work, culture data and imaging studies have all been personally reviewed. Respiratory viral panel was positive for parainfluenza on August 29. Sputum culture was positive for Streptococcus pneumonia. Vital Signs: Vital Signs Temp Pulse Resp BP Pulse Ox O2 Del Method O2 Flow Rate 97.8 F 80 15 106/88 H 97 High Flow 2 09/01/23 04:43 09/01/23 07:05 09/01/23 07:05 09/01/23 04:43 09/01/23 07:05 09/01/23 07:05 09/01/23 07:05 FiO2 25 08/31/23 15:00 Oxygen Flow Rate (L/min) 2 Oxygen Delivery Method High Flow Weight: 138 lb 8 oz Body Mass Index (BMI) 17.7 Intake & Output: Intake and Output for Last 24 Hours 08/30/23 08/31/23 09/01/23 23:59 23:59 23:59 Intake Total 150 / 390 1110 / 1110 Output Total 1725 / 2125 850 / 850 Balance 150 / -485 -615 / -1015 -850 / -850 Lab / Micro Data Attestation: I reviewed the patient's lab results. 08/31/23 04:18 08/31/23 04:18 Labs: Laboratory Results - last 24 hr 08/30/23 10:50: B-Natriuretic Peptide 65.6 08/31/23 12:52: POC Glucose 120 H 08/31/23 17:14: POC Glucose 129 H 08/31/23 23:51: POC Glucose 157 H 09/01/23 06:05: POC Glucose 106 Micro: Microbiology 08/30/23 20:20 Sputum, Expectorated/Coughed Gram Stain - Final 08/30/23 18:50 Urine, Random Legionella Antigen - Final 08/30/23 18:50 Urine, Random Streptococcus pneumoniae Antigen (M - Final 08/30/23 14:49 Mucosa - Nasopharyngeal Respiratory Panel (PCR) - Final Parainfluenza 3 08/30/23 10:50 Mucosa - Nasopharyngeal SARS-CoV-2, Influenza & RSV (PCR) - Final Physical Exam Const alert and no apparent distress General Appearance: cooperative HEENT normocephalic, head/scalp atraumatic and moist oral mucous membranes Eyes PERRL, EOMs intact bilaterally and conjunctivae normal Neck supple General: trachea midline Chest Chest Narrative: Increased AP diameter. Resp normal respiratory effort Auscultation: diminished lung sounds; Negative for rales, rhonchi or wheezes Cardio regular rate and regular rhythm GI normal to inspection, nondistended, normoactive bowel sounds Extremity no clubbing, cyanosis or edema Skin no rashes or lesions noted Neuro CN's II-XII intact bilaterally, moves all extremities and no focal motor deficits Psych cooperative and affect normal Charges/Coding Visit Charges Inpatient E&M: 40550 Subs Hosp L2
[2023-09-01] MEDS: Ensure Plus High Protein 120 ML LIQUID PO (10:07)
[2023-09-01] MEDS: Enoxaparin 40 MG/0.4 ML Syringe SC (10:07)
[2023-09-01] MEDS: BENZOCAINE/MENTHOL 1 LOZENGE MUCOUS MEM (10:07)
[2023-09-01] MEDS: guaiFENesin 1,200 MG Tablet 1200 MG PO ×2 (10:07→20:11)
[2023-09-01] MEDS: Ceftriaxone 1 GM/50 ML BAG IV (10:57)
--- NOTE | 2023-09-01 14:53 | CASEMGMT ---
An RN CM through [facility] called this RN CM and states that the pt received some benefits through the [facility] Waiver Program. The RN CM states that the pt gets 14 meals delivered per week. The RN CM also stated that the pt recently had home modifications done for the shower and porch to make them easier to manage. The RN CM states that the pt has medical alert services as well. This RN CM updated the RN CM at this time with pt status. SW also updated with this information.
[2023-09-01 16:59] LABS: Bedside Glucose 127 mg/dL (74-106)
--- NOTE | 2023-09-01 18:42 | PCM.PN.HOSP ---
Reason for Visit Reason for Visit: Diagnoses Other acidosis (08/30/23) Chronic obstructive pulmonary disease with (acute) exacerbation (08/30/23) Chronic obstructive pulmonary disease, unspecified (08/30/23) Acute respiratory failure with hypoxia (08/30/23) Chronic respiratory failure with hypoxia (08/30/23) Tachycardia, unspecified (08/30/23) Cachexia (08/30/23) Hyperglycemia, unspecified (08/30/23) Subjective Subjective Patient was seen and examined today, he is currently on low-flow nasal cannula oxygen, he is sputum culture was positive for Streptococcus pneumoniae, I discussed his care with pulmonary medicine today. Patient was placed on Rocephin for coverage of the strep. Objective Data Objective Data Vital Signs: Vital Signs Temp Pulse Resp BP Pulse Ox O2 Del Method O2 Flow Rate 97.3 F L 88 20 H 103/74 94 Nasal Cannula 2 09/01/23 15:18 09/01/23 15:29 09/01/23 15:29 09/01/23 15:18 09/01/23 15:18 09/01/23 15:18 09/01/23 15:18 FiO2 25 09/01/23 09:00 Oxygen Flow Rate (L/min) 2 Oxygen Delivery Method Nasal Cannula Weight: 62.823 kg Body Mass Index (BMI) 17.7 Intake & Output: Intake and Output for Last 24 Hours 08/30/23 08/31/23 09/01/23 23:59 23:59 23:59 Intake Total 150 / 390 1110 / 1110 530 / 530 Output Total 1725 / 2125 1800 / 1800 Balance 150 / -485 -615 / -1015 -1270 / -1270 Lab / Micro Data 08/31/23 04:18 08/31/23 04:18 Labs: Laboratory Results - last 24 hr 08/30/23 10:50: B-Natriuretic Peptide 65.6 08/31/23 23:51: POC Glucose 157 H 09/01/23 06:05: POC Glucose 106 09/01/23 16:34: POC Glucose 127 H Micro: Microbiology 08/30/23 20:20 Sputum, Expectorated/Coughed Gram Stain - Final 08/30/23 20:20 Sputum, Expectorated/Coughed Respiratory Culture - Preliminary Streptococcus pneumoniae 08/30/23 18:50 Urine, Random Legionella Antigen - Final 08/30/23 18:50 Urine, Random Streptococcus pneumoniae Antigen (M - Final 08/30/23 14:49 Mucosa - Nasopharyngeal Respiratory Panel (PCR) - Final Parainfluenza 3 08/30/23 10:50 Mucosa - Nasopharyngeal SARS-CoV-2, Influenza & RSV (PCR) - Final Radiography Diagnostic Testing: Radiology Impression Chest X-Ray 08/30/23 10:35 IMPRESSION: 1. COPD changes. 2. No evidence of acute cardiopulmonary disease. Electronically Signed: Gigi Quarles MD at 8:36 EDT , Physical Exam Narrative alert and oriented x3 Constitutional Narrative: Patient appears older than his stated age General Appearance: cooperative, well kempt and well developed Orientation / Consciousness: awake, oriented to person, oriented to place and oriented to time HEENT normocephalic, head/scalp atraumatic and moist oral mucous membranes Eyes PERRL, EOMs intact bilaterally and conjunctivae normal Neck supple, no JVD, thyroid normal and no carotid bruits General: trachea midline Resp Resp Narrative: Patient has expiratory rhonchi bilaterally Auscultation: rhonchi; Negative for rales or wheezes Cardio regular rate, regular rhythm, S1 normal heart sound, S2 normal heart sound, no murmurs, no rub and no gallops GI normal to inspection, nondistended, normoactive bowel sounds, soft to palpation, non-tender and non-distended Extremity no clubbing, cyanosis or edema Skin no rashes or lesions noted General Skin Exam: no breakdown Neuro oriented x3, CN's II-XII intact bilaterally, moves all extremities, no focal motor deficits and no sensory deficits noted Sensorium / Orientation: awake and alert Speech: speech normal Psych affect normal Assessment & Plan Assessment/Plan (1) Chronic hypoxic respiratory failure: (2) COPD with acute exacerbation: PLAN: Plan 1. Acute on chronic hypoxic respiratory failure secondary to exacerbation of COPD, strep pneumoniae pneumonia, and parainfluenza 3 pneumonitis-patient will remain on IV steroids and aerosol treatments, he was placed on Rocephin today. #2 exacerbation of COPD-again patient is receiving aerosol treatments and IV corticosteroids at this time #3 parainfluenza 3 pneumonitis-complicates care, management, recovery, and prognosis #4 strep pneumoniae pneumonia-again patient is now on Rocephin Total clinical time spent by myself addressing the patient's medical issues, reviewing all of his data, and collaborating with patient's care team: 35 minutes Charges/Coding Visit Charges Inpatient E&M: 99334 Subs Hosp L2
[2023-09-01] MEDS: Ibuprofen 400 MG Tablet PO (21:55)
[2023-09-01] MEDS: MELATONIN 3 MG TABLET PO (21:56)
[2023-09-01 22:16] LABS: Bedside Glucose 104 mg/dL (74-106)
[2023-09-02] VITALS (12 sets, daily range): BP systolic 108–130; BP diastolic 79–89; PULSE 71–112; RESP 12–20; TEMP 35.8–36.6; O2SAT 20–97; BMI 17.5
[2023-09-02] MEDS: Ipratropium/Albuterol Sulfate 3 ML AMPUL.NEB INHALATION ×6 (03:12→23:20)
--- NOTE | 2023-09-02 06:47 | PCM.PN.INT ---
Assessment & Plan Assessment/Plan (1) COPD with acute exacerbation: PLAN: Plan RECOMMENDATIONS: 1. Supplemental oxygen to maintain saturations at or above 90%. 2. Recommend empiric PAP therapy with naps and nightly. 3. Continue bronchodilators along with corticosteroids. Recommend prednisone burst 40 mg x 5 days, at discharge. 4. Continue antimicrobials to complete 7 days of therapy. 5. Continue appropriate DVT prophylaxis. 6. Nicotine replacement therapy. 7. Encourage incentive spirometer use and mobilize patient as tolerated. 8. Will sign off at this time. Please call with any additional questions. IMPRESSIONS: 1. Acute on chronic hypoxemic respiratory failure Most likely secondary to COPD exacerbation precipitated by parainfluenza infection, coupled with superimposed Streptococcus pneumonia. The patient has a known history of advanced age COPD and is currently on a triple therapy inhaler regimen, under the care of Dr. Leticia Corral of pulmonary medicine at [facility]. The patient reported a baseline oxygen requirement of approximately 3 L/min. For now, he will be continued on scheduled bronchodilators and corticosteroids. Antibiotics will be continued to complete 7 days of therapy. I would recommend to continue empiric PAP therapy with naps and nightly. Encourage incentive spirometer use and mobilize patient as tolerated. The patient will need to resume his triple therapy inhaler regimen at discharge and follow-up with his primary pulmonary provider. 2. History of tobacco dependency/pulmonary cachexia Complicates care, management, recovery and prognosis. Continue current supportive measures. Nicotine replacement therapy can be offered to the patient while admitted to the hospital. This note was generated with [employer] dictation software. It may contain incorrect words, spelling, and punctuation that were not noted in checking the note before signing. Subjective Subjective The patient was seen and examined at the bedside this morning. Events from the last 24 hours have been reviewed. The patient is currently afebrile, hemodynamically stable and maintaining appropriate oxygen saturations on 2 L/min via nasal cannula. No overnight events reported by the nursing staff. Objective Data Objective Data The patient's most recent lab work, culture data and imaging studies have all been personally reviewed. Respiratory viral panel was positive for parainfluenza on August 29. Sputum culture was positive for Streptococcus pneumonia. Vital Signs: Vital Signs Temp Pulse Resp BP Pulse Ox O2 Del Method O2 Flow Rate 97.9 F 71 14 114/81 H 95 Nasal Cannula 2 09/02/23 04:00 05/15/24 04:00 09/02/23 04:00 09/02/23 04:00 09/02/23 04:00 09/02/23 04:00 09/02/23 04:00 FiO2 25 09/02/23 03:12 Oxygen Flow Rate (L/min) 2 Oxygen Delivery Method Nasal Cannula Weight: 136 lb 8 oz Body Mass Index (BMI) 17.5 Intake & Output: Intake and Output for Last 24 Hours 08/31/23 09/01/23 09/02/23 23:59 23:59 23:59 Intake Total 1110 / 1110 730 / 730 Output Total 1725 / 2125 2550 / 2550 200 / 200 Balance -615 / -1015 -1820 / -1820 -200 / -200 Lab / Micro Data Attestation: I reviewed the patient's lab results. 08/31/23 04:18 08/31/23 04:18 Labs: Laboratory Results - last 24 hr 09/01/23 16:34: POC Glucose 127 H 09/01/23 21:55: POC Glucose 104 Micro: Microbiology 08/30/23 20:20 Sputum, Expectorated/Coughed Gram Stain - Final 08/30/23 20:20 Sputum, Expectorated/Coughed Respiratory Culture - Preliminary Streptococcus pneumoniae 08/30/23 18:50 Urine, Random Legionella Antigen - Final 08/30/23 18:50 Urine, Random Streptococcus pneumoniae Antigen (M - Final 08/30/23 14:49 Mucosa - Nasopharyngeal Respiratory Panel (PCR) - Final Parainfluenza 3 08/30/23 10:50 Mucosa - Nasopharyngeal SARS-CoV-2, Influenza & RSV (PCR) - Final Radiography Diagnostic Testing: Radiology Impression Chest X-Ray 08/30/23 10:35 IMPRESSION: 1. COPD changes. 2. No evidence of acute cardiopulmonary disease. Electronically Signed: Gigi Quarles MD at 8:36 EDT , Physical Exam Const alert, oriented x3 and no apparent distress General Appearance: cooperative HEENT normocephalic, head/scalp atraumatic and moist oral mucous membranes Eyes PERRL, EOMs intact bilaterally and conjunctivae normal Neck supple General: trachea midline Chest Chest Narrative: Increased AP diameter. Resp normal respiratory effort Auscultation: diminished lung sounds; Negative for rales, rhonchi or wheezes Cardio regular rate and regular rhythm GI normal to inspection, nondistended, normoactive bowel sounds Extremity no clubbing, cyanosis or edema Skin no rashes or lesions noted Neuro CN's II-XII intact bilaterally, moves all extremities and no focal motor deficits Psych cooperative and affect normal Charges/Coding Visit Charges Inpatient E&M: 71101 Subs Hosp L2
[2023-09-02] MEDS: Ibuprofen 400 MG Tablet PO ×2 (06:49→11:28)
[2023-09-02 07:13] LABS: Bedside Glucose 112 mg/dL (74-106)
[2023-09-02] MEDS: Enoxaparin 40 MG/0.4 ML Syringe SC (08:03)
[2023-09-02] MEDS: guaiFENesin 1,200 MG Tablet 1200 MG PO ×2 (08:03→21:32)
[2023-09-02] MEDS: Ensure Plus High Protein 120 ML LIQUID PO (08:04)
[2023-09-02] MEDS: Ceftriaxone 1 GM/50 ML BAG IV (08:08)
[2023-09-02] MEDS: 0.9% Normal Saline (250mL Bag) 250 ML 15 ML IV (08:10)
--- NOTE | 2023-09-02 10:34 | CASEMGMT ---
Addendum entered by Princess Hammond 09/02/23 16:02: 1530: [facility] states [facility] can accept and Start care on Thursday. 1535: RN CM to pt room to update pt that [facility] accepts for SOC on Thursday. Pt then states that he is now agreeable to SNF after DC. 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 Pt updated that SW will follow the pt case and provide SNF options if the pt would prefer. Dr. Juares and SW updated and made aware. 1557: [facility] calls this RN CM and state that they cannot accept the pt now d/t insurance. This RN CM updated [facility] that the pt has changed his mind and would like SNF placement anyway. SW to continue to follow this pt in regard to safe DC from [facility]. Addendum entered by Princess Hammond 09/02/23 15:24: Dr. Juares states that he plans on discharging the pt home tomorrow on ATBs. TC to [facility] and referral made to [facility] for SN, PT, and OT. Awaiting return response. Addendum entered by Princess Hammond 09/02/23 12:26: RN ALIS back to pt room at this time. Pt is now on NC and willing to answer this RN CM questions regarding disposition. Pt states that he wants to DC home once medically ready. Pt states that he would like HH set up if he were to go home. Will make referral once appropriate. Pt denies SNF. Pt also reports that he had a 30 minute episode of Chest Pain. Dr. Juares notified. Will follow. Original Note: Dr. Juares states that the pt may qualify for SNF at time of DC. This RN CM to pt room at this time in regard to DC planning. Pt is currently on BiPAP therapy and does not appear to want to answer this RN CM questions at this time. CM/SW to follow.
--- NOTE | 2023-09-02 11:26 | CASEMGMT ---
SW called [facility] and patient is active with them for waiver services. Patient's case reviewer is Pratik Geller ([phone]). Patient has a medical alert button and he gets 14 meals a week from [facility]. Ashlyn VAUGHN
[2023-09-02 11:43] LABS: Bedside Glucose 113 mg/dL (74-106)
--- NOTE | 2023-09-02 15:59 | PCM.PN.HOSP ---
Reason for Visit Reason for Visit: Diagnoses Other acidosis (08/30/23) Chronic obstructive pulmonary disease with (acute) exacerbation (08/30/23) Chronic obstructive pulmonary disease, unspecified (08/30/23) Acute respiratory failure with hypoxia (08/30/23) Chronic respiratory failure with hypoxia (08/30/23) Tachycardia, unspecified (08/30/23) Cachexia (08/30/23) Hyperglycemia, unspecified (08/30/23) Subjective Subjective Patient was seen and examined today, he remains on nasal cannula oxygen, I talked with him briefly about whether he felt he was safe to go home, he was vague to me about this and I asked him if he would consider going to an extended care facility for short-term rehab services, patient would not give me a direct answer about this but he stated he was not in favor of it overall. Case management talked with him today, initially patient would not give a direct answer concerning going to an extended care facility but then later on this afternoon agreed that he would go there for short-term rehab services. Objective Data Objective Data Vital Signs: Vital Signs Temp Pulse Resp BP Pulse Ox O2 Del Method O2 Flow Rate 97.9 F 90 18 116/89 H 20 Nasal Cannula 2 09/02/23 12:00 09/02/23 15:55 09/02/23 15:55 09/02/23 12:00 09/02/23 12:00 09/02/23 12:00 09/02/23 12:00 FiO2 25 09/02/23 03:12 Oxygen Flow Rate (L/min) 2 Oxygen Delivery Method Nasal Cannula Weight: 61.915 kg Body Mass Index (BMI) 17.5 Intake & Output: Intake and Output for Last 24 Hours 08/31/23 09/01/23 09/02/23 23:59 23:59 23:59 Intake Total 1110 / 1110 730 / 730 350 / 350 Output Total 1725 / 2125 2550 / 2550 500 / 500 Balance -615 / -1015 -1820 / -1820 -150 / -150 Lab / Micro Data 08/31/23 04:18 08/31/23 04:18 Labs: Laboratory Results - last 24 hr 09/01/23 16:34: POC Glucose 127 H 09/01/23 21:55: POC Glucose 104 09/02/23 06:47: POC Glucose 112 H 09/02/23 11:09: POC Glucose 113 H Micro: Microbiology 08/30/23 20:20 Sputum, Expectorated/Coughed Gram Stain - Final 08/30/23 20:20 Sputum, Expectorated/Coughed Respiratory Culture - Preliminary Streptococcus pneumoniae 08/30/23 18:50 Urine, Random Legionella Antigen - Final 08/30/23 18:50 Urine, Random Streptococcus pneumoniae Antigen (M - Final 08/30/23 14:49 Mucosa - Nasopharyngeal Respiratory Panel (PCR) - Final Parainfluenza 3 08/30/23 10:50 Mucosa - Nasopharyngeal SARS-CoV-2, Influenza & RSV (PCR) - Final Physical Exam Narrative alert and oriented x3 Constitutional Narrative: Patient appears older than his stated age General Appearance: cooperative, well kempt and well developed Orientation / Consciousness: awake, oriented to person, oriented to place and oriented to time HEENT normocephalic, head/scalp atraumatic and moist oral mucous membranes Eyes PERRL, EOMs intact bilaterally and conjunctivae normal Neck supple, no JVD, thyroid normal and no carotid bruits General: trachea midline Resp Resp Narrative: Patient has expiratory rhonchi bilaterally Auscultation: rhonchi; Negative for rales or wheezes Cardio regular rate, regular rhythm, S1 normal heart sound, S2 normal heart sound, no murmurs, no rub and no gallops GI normal to inspection, nondistended, normoactive bowel sounds, soft to palpation, non-tender and non-distended Extremity no clubbing, cyanosis or edema Skin no rashes or lesions noted General Skin Exam: no breakdown Neuro oriented x3, CN's II-XII intact bilaterally, moves all extremities, no focal motor deficits and no sensory deficits noted Sensorium / Orientation: awake and alert Speech: speech normal Psych affect normal Assessment & Plan Assessment/Plan (1) COPD with acute exacerbation: (2) Chronic hypoxic respiratory failure: PLAN: Plan 1. Acute on chronic hypoxic respiratory failure secondary to exacerbation of COPD, strep pneumoniae pneumonia, and parainfluenza 3 pneumonitis-patient will remain on IV steroids and aerosol treatments, he will remain on IV Rocephin for now #2 exacerbation of COPD-again patient is receiving aerosol treatments and IV corticosteroids at this time #3 parainfluenza 3 pneumonitis-complicates care, management, recovery, and prognosis #4 strep pneumoniae pneumonia-again patient is now on Rocephin #5 acute debility secondary to severe COPD, chronic hypoxic respiratory failure, and pneumonia-patient has agreed to short-term placement in intermediate facility, we will proceed with planning Total clinical time spent by myself addressing the patient's medical issues, reviewing all of his data, and collaborating with patient's care team: 35 minutes Charges/Coding Visit Charges Inpatient E&M: 90851 Subs Hosp L2
--- NOTE | 2023-09-02 16:07 | CASEMGMT ---
Discharge Planning A list of?SNF providers including quality and resource use data and consistent with the patient's preferred geographic region, medical needs, and insurance network was created in [employer] Guide.? This list was provided to the SW. Rimma Delgado Discharge Planning Asst.
[2023-09-02] MEDS: 0.9% Saline Lock 10 ML Syringe IV ×2 (16:48→21:33)
--- NOTE | 2023-09-02 16:55 | CASEMGMT ---
Social Work SW received referral from RNCM that pt is now cosidering SNF placement. SW met with pt and introduced self and role of SW. Discharge plan discussed and pt states he is agreeable to go to SNF for very short amount of time. Pt is self limiting stating he does not think he should/could walk long distances due to comorbidities of MS and COPD. SW explained purpose of SNF is for physical rehabilitation. A list of SNF providers including quality and resource use data and consistent with the patient?s preferred geographic region, medical needs, and insurance network were provided from the [employer] Guide. Pt preferred provider is [facility]. SW will continue to follow for discharge planning. ALONZO Shabazz
[2023-09-02 17:03] LABS: Bedside Glucose 96 mg/dL (74-106)
--- NOTE | 2023-09-02 18:46 | NURSING ---
report called to pcu for transfer to room 124
[2023-09-02 22:08] LABS: Bedside Glucose 107 mg/dL (74-106)
--- NOTE | 2023-09-02 23:32 | NURSING ---
2130- BGT checked per [facility] protocol, BGT 107. Insulin fuentes as Q6H. Pt not requiring insulin at this time. 2329- Confirmed w/ Dr. Chaparro that insulin admin can be changed to ACHS from Q6H.
[2023-09-03] VITALS (11 sets, daily range): BP systolic 100–130; BP diastolic 74–89; PULSE 84–98; RESP 12–18; TEMP 36.2–36.9; O2SAT 92–99; BMI 17.5
--- NOTE | 2023-09-03 02:18 | CPS ---
Patient refused PAP therapy for the night.
[2023-09-03] MEDS: 0.9% Saline Lock 10 ML Syringe IV ×2 (06:12→13:42)
[2023-09-03 06:32] LABS: Bedside Glucose 101 mg/dL (74-106)
[2023-09-03] MEDS: Ipratropium/Albuterol Sulfate 3 ML AMPUL.NEB INHALATION ×5 (07:28→22:36)
[2023-09-03] MEDS: Ceftriaxone 1 GM/50 ML BAG IV (10:40)
[2023-09-03] MEDS: guaiFENesin 1,200 MG Tablet 1200 MG PO ×2 (10:42→20:37)
[2023-09-03] MEDS: Enoxaparin 40 MG/0.4 ML Syringe SC (10:43)
--- NOTE | 2023-09-03 11:07 | CASEMGMT ---
MYLA made a referral to [facility]. TCU can take patient. MYLA met with patient. Introduced self and role at [facility]. SW let patient know that [facility] can take him pending his insurance approval. Patient was in agreement. Plan: d/c to [facility] pending insurance approval. Ashlyn VAUGHN
[2023-09-03 12:23] LABS: Bedside Glucose 102 mg/dL (74-106)
--- NOTE | 2023-09-03 14:48 | CASEMGMT ---
Patient was approved by insurance for TCU. A bed will be available for patient tomorrow. Plan: d/c to [facility] Ashlyn VAUGHN
--- NOTE | 2023-09-03 18:15 | PCM.PN.HOSP ---
Reason for Visit Reason for Visit: Diagnoses Other acidosis (08/30/23) Chronic obstructive pulmonary disease with (acute) exacerbation (08/30/23) Chronic obstructive pulmonary disease, unspecified (08/30/23) Acute respiratory failure with hypoxia (08/30/23) Chronic respiratory failure with hypoxia (08/30/23) Tachycardia, unspecified (08/30/23) Cachexia (08/30/23) Hyperglycemia, unspecified (08/30/23) Subjective Subjective Patient was seen and examined today, he remains on 2 L of oxygen via nasal cannula, he appears in no distress. We are waiting approval for him to go to a intermediate facility for short-term rehab services. Objective Data Objective Data Vital Signs: Vital Signs Temp Pulse Resp BP Pulse Ox O2 Del Method O2 Flow Rate 97.5 F L 90 18 130/83 H 94 Nasal Cannula 2 09/03/23 17:13 09/03/23 17:13 09/03/23 17:13 09/03/23 17:13 09/03/23 17:13 09/03/23 17:13 09/03/23 17:13 FiO2 25 09/02/23 03:12 Oxygen Flow Rate (L/min) 2 Oxygen Delivery Method Nasal Cannula Weight: 61.9 kg Body Mass Index (BMI) 17.5 Intake & Output: Intake and Output for Last 24 Hours 09/01/23 09/02/23 09/03/23 23:59 23:59 23:59 Intake Total 730 / 730 877 / 877 530 / 530 Output Total 2550 / 2550 800 / 800 1310 / 1310 Balance -1820 / -1820 77 / 77 -780 / -780 Medical Nutrition Assessment Dietitian: Malnutrition Criteria Met Start: 09/03/23 12:05 Freq: Status: Active Protocol: Document 09/03/23 12:06 RMA (Rec: 09/03/23 12:06 RMA [id number]) Nutrition Malnutrition Evidence of Malnutrition Exists Yes Malnutrition (severe): Chronic Evidenced By Suboptimal Energy Intake ( Severe),Weight Loss (Severe), Physical Changes (Moderate) Clinical Problem Chronic Disease or Condition Related Malnutrition Etiology Severe protein-calorie malnutrition in the context of chronic disease related to inadequate energy/oral intake and increased energy expenditure Signs/Symptoms as evidenced by BMI 17.5, unintentional weight loss ~2-3 % x past 5 days, muscle wasting and fat depletion noted in the clavicle, orbitals and temporal region, PO meeting less than 50% estimated nutrition needs x last 2 weeks and refusing ONS with medpass Status Active Problem Recommendation Dietitian Recommendations/Changes Will continue liberal regular diet with ensure compact at breakfast. Will add magic cup BID w/ lunch and dinner. Will continue 120 ml ensure plus high protein 3x/day w/ medpass, encouraged intake. Lab / Micro Data 08/31/23 04:18 08/31/23 04:18 Labs: Laboratory Results - last 24 hr 09/02/23 21:31: POC Glucose 107 H 09/03/23 06:10: POC Glucose 101 09/03/23 11:58: POC Glucose 102 Micro: Microbiology 08/30/23 20:20 Sputum, Expectorated/Coughed Gram Stain - Final 08/30/23 20:20 Sputum, Expectorated/Coughed Respiratory Culture - Preliminary Streptococcus pneumoniae 08/30/23 18:50 Urine, Random Legionella Antigen - Final 08/30/23 18:50 Urine, Random Streptococcus pneumoniae Antigen (M - Final 08/30/23 14:49 Mucosa - Nasopharyngeal Respiratory Panel (PCR) - Final Parainfluenza 3 08/30/23 10:50 Mucosa - Nasopharyngeal SARS-CoV-2, Influenza & RSV (PCR) - Final Physical Exam Narrative alert and oriented x3 Constitutional Narrative: Patient appears older than his stated age General Appearance: cooperative, well kempt and well developed Orientation / Consciousness: awake, oriented to person, oriented to place and oriented to time HEENT normocephalic, head/scalp atraumatic and moist oral mucous membranes Eyes PERRL, EOMs intact bilaterally and conjunctivae normal Neck supple, no JVD, thyroid normal and no carotid bruits General: trachea midline Resp Resp Narrative: Patient has expiratory rhonchi bilaterally Auscultation: rhonchi; Negative for rales or wheezes Cardio regular rate, regular rhythm, S1 normal heart sound, S2 normal heart sound, no murmurs, no rub and no gallops GI normal to inspection, nondistended, normoactive bowel sounds, soft to palpation, non-tender and non-distended Extremity no clubbing, cyanosis or edema Skin no rashes or lesions noted General Skin Exam: no breakdown Neuro oriented x3, CN's II-XII intact bilaterally, moves all extremities, no focal motor deficits and no sensory deficits noted Sensorium / Orientation: awake and alert Speech: speech normal Psych affect normal Assessment & Plan Assessment/Plan (1) COPD with acute exacerbation: (2) Chronic hypoxic respiratory failure: PLAN: Plan 1. Acute on chronic hypoxic respiratory failure secondary to exacerbation of COPD, strep pneumoniae pneumonia, and parainfluenza 3 pneumonitis-I have decided to transition the patient over to oral antibiotics, Rocephin will be stopped #2 exacerbation of COPD-again patient is receiving aerosol treatments and I will transition patient over to p.o. prednisone. #3 parainfluenza 3 pneumonitis-complicates care, management, recovery, and prognosis #4 strep pneumoniae pneumonia-again patient is now on Keflex #5 acute debility secondary to severe COPD, chronic hypoxic respiratory failure, and pneumonia-patient has agreed to short-term placement in intermediate facility, we will proceed with planning Total clinical time spent by myself addressing the patient's medical issues, reviewing all of his data, and collaborating with patient's care team: 35 minutes Charges/Coding Visit Charges Inpatient E&M: 39875 Subs Hosp L2
[2023-09-04] VITALS (8 sets, daily range): BP systolic 96–111; BP diastolic 75–89; PULSE 73–92; RESP 16–20; TEMP 36.6–36.7; O2SAT 93–99; BMI 17.4
[2023-09-04] MEDS: Cephalexin 500 MG Capsule PO (05:44)
[2023-09-04] MEDS: Ipratropium/Albuterol Sulfate 3 ML AMPUL.NEB INHALATION ×2 (07:12→11:23)
--- NOTE | 2023-09-04 08:49 | CASEMGMT ---
MYLA met with patient. MYLA let patient know that insurance approved him for TCU. Patient confirmed he would like to go to TCU. Plan: d/c to [facility] when medically ready. Ashlyn VAUGHN
[2023-09-04] MEDS: guaiFENesin 1,200 MG Tablet 1200 MG PO (09:04)
[2023-09-04] MEDS: Enoxaparin 40 MG/0.4 ML Syringe SC (09:04)
[2023-09-04] MEDS: predniSONE 20 MG Tablet PO (09:04)
--- NOTE | 2023-09-04 11:04 | TREXTCAR_ITS ---
Diet Diet Order/Speech Therapy: 08/31/23 08:50 Diet: Regular - General Food consistency:: Regular Liquid Consistency:: Regular/Thin Type of Dietary Supplement:: Ensure Compact w/ brkfst Diet Comments: magic cup w/ lunch and dinner Routine Orders/Code Status O2 Liters per Minute: 2 O2 Frequency: Continuous Keep PO Greater than or Equal to (%): 90 Code Status: Full Code Therapies Weight Bearing: Full weight bearing Physical Therapy: Eval and Treat Occupational Therapy: Eval and Treat Problem/Diagnosis (1) COPD with acute exacerbation: Status: Chronic Code(s): J44.1 - Chronic obstructive pulmonary disease with (acute) exacerbation (2) Chronic hypoxic respiratory failure: Status: Chronic Code(s): J96.11 - Chronic respiratory failure with hypoxia Plan 1. Acute on chronic hypoxic respiratory failure secondary to exacerbation of COPD, strep pneumoniae pneumonia, and parainfluenza 3 pneumonitis-I have decided to transition the patient over to oral antibiotics, Rocephin will be stopped #2 exacerbation of COPD-again patient is receiving aerosol treatments and I will transition patient over to p.o. prednisone. #3 parainfluenza 3 pneumonitis-complicates care, management, recovery, and prognosis #4 strep pneumoniae pneumonia-again patient is now on Keflex #5 acute debility secondary to severe COPD, chronic hypoxic respiratory failure, and pneumonia-patient has agreed to short-term placement in residential facility, we will proceed with planning Total clinical time spent by myself addressing the patient's medical issues, reviewing all of his data, and collaborating with patient's care team: 35 minutes Allergies/Procedures Done in Hospital Allergies acetaminophen (From Tylenol) Adverse Reaction (Intermediate, Verified 09/01/23 21:18) Nausea can not take tylenol d/t the buffers tearing up the lining in his belly Penicillins Adverse Reaction (Verified 09/01/23 09:46) Upset Stomach Procedures: None Type of Care/Length of Stay Estimated LOS: Convalescent Care Less Than 30 days Type of Care Needed: Skilled Rehab Potential: Good Prognosis: Good Additional Orders/Day of Discharge H&P will serve as current which was dated: 08/30/23 Day of Discharge: 09/04/23 Dietary and Speech Recommendations Dietitian Recommendations/Changes: Will continue liberal regular diet with ensure compact at breakfast. Will add magic cup BID w/ lunch and dinner. Will continue 120 ml ensure plus high protein 3x/day w/ medpass, encouraged intake. Discharge Plan Admission Admit Date/Time: 08/30/23 12:51 Primary Reason for Your Visit: resp failure, pneumonia Attending Provider: Lexx Eason Primary Care Provider: Segun Valdez NP Consulting Providers: Mariela Leal Discharge Orders/Prescriptions Prescriptions: New albuterol sulfate 2.5 mg /3 mL (0.083 %) Solution For Nebulization 2.5 mg inhalation Q2H PRN PRN (Reason: SHORTNESS OF BREATH ) Qty: 0 0RF cephalexin 500 mg Capsule 500 mg PO Q8 Qty: 0 0RF Rx Instructions: administer for 5 doses, then stop enoxaparin 40 mg/0.4 mL Syringe 40 mg subcut DAILY Qty: 0 0RF guaifenesin [Mucus Relief ER] 1,200 mg Tablet Extended Release 12hr 1,200 mg PO BID Qty: 0 0RF Ensure Plus High Protein 0.08 gram-1.5 kcal/mL Liquid 120 ml PO TIDCM Qty: 0 0RF ipratropium-albuterol 0.5 mg-3 mg(2.5 mg base)/3 mL Solution For Nebulization 3 ml inhalation Q4H.RT Qty: 0 0RF nicotine 21 mg/24 hr Patch 24 Hour 21 mg transdermal DAILY Qty: 0 0RF prednisone 20 mg Tablet 20 mg PO BREAKFAST Qty: 0 0RF Rx Instructions: give 6 doses, then discontinue-start 09/05/23 sennosides-docusate sodium [Stool Softener-Stimulant Laxat] 8.6-50 mg Tablet 2 tab PO BID PRN (Reason: Constipation) Qty: 0 0RF Continued tamsulosin 0.4 mg capsule 0.4 mg PO QHS Discontinued Anoro Ellipta 62.5-25 mcg/actuation blister with device 1 ea INHALATION DAILY sildenafil 100 mg tablet 100 mg PO DAILY PRN (Reason: Sexual Activity) Patient Comments: Take one tablet by mouth 60 minutes prior to sexual activity. Not to exceed one tablet per 24 hours. For erectile dysfunction albuterol sulfate [Ventolin HFA] 1 INHALER HFA aerosol inhaler 2 puff inhalation Q6H Referrals / Follow Up: Segun Valdez NP, [employer] [Primary Care Provider] - Disposition Disposition (needs filled in before D/C Order can be placed): Group Home Facility
--- NOTE | 2023-09-04 11:15 | DS.PCM_ITS ---
Providers Date of Admission: 08/30/23 Date of Discharge: 09/04/23 Primary Care Physician: KRISTY Flores Consultations 08/30/23 14:36 Consult: Facility Mechanic / Pulmonary Medicine Routine Consulting Provider: Intensivists/Pulmonary Med Reason for Consult: Acute hypoxic respiratory failure secondary to acute exacerbation of COPD EMERGENT Consult: No Notified: No Date Notified: 08/30/23 Time Notified: 12:59 Comments:: OK To see 08/31/2023 08/31/23 06:31 Consult: Facility Mechanic / Pulmonary Medicine Routine Consulting Provider: Intensivists/Pulmonary Med Reason for Consult: copd EMERGENT Consult: No Notified: Yes Date Notified: 08/31/23 Time Notified: 06:31 Method of Notification: Text Reason For Visit: ACUTE HYPOXIC RESPIRATORY FAILURE 2/2 TO ACUTE EXA Diagnosis Discharge Diagnosis (1) COPD with acute exacerbation: Status: Chronic Code(s): J44.1 - Chronic obstructive pulmonary disease with (acute) exacerbation (2) Chronic hypoxic respiratory failure: Status: Chronic Code(s): J96.11 - Chronic respiratory failure with hypoxia Plan 1. Acute on chronic hypoxic respiratory failure secondary to exacerbation of COPD, strep pneumoniae pneumonia, and parainfluenza 3 pneumonitis-I have decided to transition the patient over to oral antibiotics, Rocephin will be stopped #2 exacerbation of COPD-again patient is receiving aerosol treatments and I will transition patient over to p.o. prednisone. #3 parainfluenza 3 pneumonitis-complicates care, management, recovery, and prognosis #4 strep pneumoniae pneumonia-again patient is now on Keflex #5 acute debility secondary to severe COPD, chronic hypoxic respiratory failure, and pneumonia-patient has agreed to short-term placement in intermediate facility, we will proceed with planning Total clinical time spent by myself addressing the patient's medical issues, reviewing all of his data, and collaborating with patient's care team: 35 minutes Medications at Discharge Home Medications tamsulosin 0.4 mg capsule 0.4 mg PO QHS BPH 08/30/23 albuterol sulfate 2.5 mg/3 mL (0.083 %) solution for nebulization 2.5 mg (3 mL) inhalation Q2H PRN PRN SHORTNESS OF BREATH #0 mL 09/04/23 cephalexin 500 mg capsule 500 mg PO Q8 pneumonia #0 caps 05/17/24 enoxaparin 40 mg/0.4 mL subcutaneous syringe 40 mg (0.4 mL) subcut DAILY blood thinner #0 mL 09/04/23 food supplemt, lactose-reduced 0.08 gram-1.5 kcal/mL oral liquid (Ensure Plus High Protein) 120 ml PO TIDCM nutrition suppleme #0 mL 09/04/23 guaifenesin 1,200 mg tablet, extended release 12 hr (Mucus Relief ER) 1,200 mg PO BID mucous #0 tabs 09/04/23 ipratropium 0.5 mg-albuterol 3 mg (2.5 mg base)/3 mL nebulization soln 3 ml inhalation Q4H.RT pneumonia #0 mL 09/04/23 nicotine 21 mg/24 hr daily transdermal patch 21 mg transdermal DAILY smoker #0 ea 09/04/23 prednisone 20 mg tablet 20 mg PO BREAKFAST lungs #0 tabs 09/04/23 sennosides 8.6 mg-docusate sodium 50 mg tablet (Stool Softener-Stimulant Laxative) 2 tab PO BID PRN Constipation #0 tabs 09/04/23 Hospital Course Operations None Procedures None Summary of Care Provided Minutes Spent on Discharge: 31 Hospital Course: This 68-year-old white male presented to the emergency room at [facility] complaining of shortness of breath, patient was a current smoker and is being seen by a baccarat manager at [facility] locally. Patient wears oxygen only at night and he typically wears 2-1/2 L while sleeping but none during the day. Patient stated he had to turn up his oxygen because he was short of breath at home and use it during the day. Workup in the emergency room showed his pulse ox on 6 L to be 98%, patient still had difficulty with dyspnea so he was placed on BiPAP, CBC was unremarkable, chemistry panel showed normal electrolytes and no renal dysfunction. Chest x-ray showed hyperinflation with flattened diaphragms consistent with COPD. Patient was given aerosol treatments in the emergency room and IV Solu-Medrol. Patient was admitted for acute on chronic hypoxic respiratory failure secondary to acute exacerbation of COPD, he was seen in consultation by critical care, he was placed on IV Solu-Medrol and aerosol treatments. Patient's respiratory panel resulted positive for parainfluenza 3 pneumonitis, sputum culture grew out strep pneumoniae and his antibiotics were adjusted. Patient was seen by PT and OT, he remained weak and he agreed to temporary placement to intermediate facility for inpatient rehab services. On 09/04/2023, patient was seen and examined:alert and oriented x3 Constitutional Narrative: Patient appears older than his stated age General Appearance: cooperative, well kempt and well developed Orientation / Consciousness: awake, oriented to person, oriented to place and oriented to time HEENT normocephalic, head/scalp atraumatic and moist oral mucous membranes Eyes PERRL, EOMs intact bilaterally and conjunctivae normal Neck supple, no JVD, thyroid normal and no carotid bruits General: trachea midline Resp Resp Narrative: Patient has expiratory rhonchi bilaterally Auscultation: rhonchi; Negative for rales or wheezes Cardio regular rate, regular rhythm, S1 normal heart sound, S2 normal heart sound, no murmurs, no rub and no gallops GI normal to inspection, nondistended, normoactive bowel sounds, soft to palpation, non-tender and non-distended Extremity no clubbing, cyanosis or edema Skin no rashes or lesions noted General Skin Exam: no breakdown Neuro oriented x3, CN's II-XII intact bilaterally, moves all extremities, no focal motor deficits and no sensory deficits noted Sensorium / Orientation: awake and alert Speech: speech normal Psych affect normal Patient was discharged to a intermediate facility on 09/04/2023 in stable condition. Medical Records Data Medical Nutrition Assessment Dietitian: Malnutrition Criteria Met Start: 09/03/23 12:05 Freq: Status: Active Protocol: Document 09/03/23 12:06 RMA (Rec: 09/03/23 12:06 RMA [id number]) Nutrition Malnutrition Evidence of Malnutrition Exists Yes Malnutrition (severe): Chronic Evidenced By Suboptimal Energy Intake ( Severe),Weight Loss (Severe), Physical Changes (Moderate) Clinical Problem Chronic Disease or Condition Related Malnutrition Etiology Severe protein-calorie malnutrition in the context of chronic disease related to inadequate energy/oral intake and increased energy expenditure Signs/Symptoms as evidenced by BMI 17.5, unintentional weight loss ~2-3 % x past 5 days, muscle wasting and fat depletion noted in the clavicle, orbitals and temporal region, PO meeting less than 50% estimated nutrition needs x last 2 weeks and refusing ONS with medpass Status Active Problem Recommendation Dietitian Recommendations/Changes Will continue liberal regular diet with ensure compact at breakfast. Will add magic cup BID w/ lunch and dinner. Will continue 120 ml ensure plus high protein 3x/day w/ medpass, encouraged intake. Weight / BMI Weight Weight: 61.4 kg Body Mass Index (BMI) 17.4 ABG / Lab / Microbiology Data 08/31/23 04:18 08/31/23 04:18 Laboratory: Laboratory Results - last 24 hr 09/03/23 11:58: POC Glucose 102 Microbiology: Microbiology 08/30/23 20:20 Sputum, Expectorated/Coughed Gram Stain - Final 08/30/23 20:20 Sputum, Expectorated/Coughed Respiratory Culture - Final Streptococcus pneumoniae 08/30/23 18:50 Urine, Random Legionella Antigen - Final 08/30/23 18:50 Urine, Random Streptococcus pneumoniae Antigen (M - Final 08/30/23 14:49 Mucosa - Nasopharyngeal Respiratory Panel (PCR) - Final Parainfluenza 3 08/30/23 10:50 Mucosa - Nasopharyngeal SARS-CoV-2, Influenza & RSV (PCR) - Final Meaningful Use Info Meaningful Use Meaningful Use Diagnoses (Choose all that apply): None applicable Ischemic Stroke Statin Dosing Therapy Reference: STATIN DOSE THERAPY REFERENCE: * Patients > 75 years receive moderate or high dose statin therapy. * Patients 75 years or YOUNGER should receive HIGH intensity statin dose unless contraindicated. You will be required to document reason for non-treatment if statin daily dose does not meet guidelines. HIGH DOSE STATIN THERAPY DAILY Atorvastatin > than or = to 40 mg Rosuvastatin > than or = to 20 mg Amlodipine + Atorvastatin > than or = to 2.5/40 mg Ezetimibe + Simvastatin 10/80 mg Simvastatin 80mg Discharge Plan Admission Admit Date/Time: 08/30/23 12:51 Primary Reason for Your Visit: resp failure, pneumonia Attending Provider: Lexx Eason Primary Care Provider: Segun Valdez NP Consulting Providers: Mariela Leal Discharge Orders/Prescriptions Prescriptions: New albuterol sulfate 2.5 mg /3 mL (0.083 %) Solution For Nebulization 2.5 mg inhalation Q2H PRN PRN (Reason: SHORTNESS OF BREATH ) Qty: 0 0RF cephalexin 500 mg Capsule 500 mg PO Q8 Qty: 0 0RF Rx Instructions: administer for 5 doses, then stop enoxaparin 40 mg/0.4 mL Syringe 40 mg subcut DAILY Qty: 0 0RF guaifenesin [Mucus Relief ER] 1,200 mg Tablet Extended Release 12hr 1,200 mg PO BID Qty: 0 0RF Ensure Plus High Protein 0.08 gram-1.5 kcal/mL Liquid 120 ml PO TIDCM Qty: 0 0RF ipratropium-albuterol 0.5 mg-3 mg(2.5 mg base)/3 mL Solution For Nebulization 3 ml inhalation Q4H.RT Qty: 0 0RF nicotine 21 mg/24 hr Patch 24 Hour 21 mg transdermal DAILY Qty: 0 0RF prednisone 20 mg Tablet 20 mg PO BREAKFAST Qty: 0 0RF Rx Instructions: give 6 doses, then discontinue-start 09/05/23 sennosides-docusate sodium [Stool Softener-Stimulant Laxat] 8.6-50 mg Tablet 2 tab PO BID PRN (Reason: Constipation) Qty: 0 0RF Continued tamsulosin 0.4 mg capsule 0.4 mg PO QHS Discontinued Anoro Ellipta 62.5-25 mcg/actuation blister with device 1 ea INHALATION DAILY sildenafil 100 mg tablet 100 mg PO DAILY PRN (Reason: Sexual Activity) Patient Comments: Take one tablet by mouth 60 minutes prior to sexual activity. Not to exceed one tablet per 24 hours. For erectile dysfunction albuterol sulfate [Ventolin HFA] 1 INHALER HFA aerosol inhaler 2 puff inhalation Q6H Referrals / Follow Up: Segun Valdez NP, [employer] [Primary Care Provider] - Disposition Disposition (needs filled in before D/C Order can be placed): Residential Facility Charges/Coding Visit Charges Inpatient E&M: 93952 Disch Hosp >30min
--- NOTE | 2023-09-04 12:30 | NURSING ---
Called report to nurse Sanchez for pt to be d/c to TCU.
== END 2023-09-04 14:10 | disposition skilled nursing facility (03) | DRG 193 ==
LOC: ED 11:01 → ICU 13:15 → PCU 09-02 19:43
PROVIDERS: Admitting Provider Internal Medicine; Emergency Provider Emergency Medicine; PCP Nurse Practitioner Family; Visit Provider Internal Medicine
DX: J13 Pneumonia due to Streptococcus pneumoniae (principal); J96.21 Acute and chronic respiratory failure with hypoxia; E43 Unspecified severe protein-calorie malnutrition; R64 Cachexia; J44.1 Chronic obstructive pulmonary disease with (acute) exacerbation; J44.0 Chronic obstructive pulmonary disease with (acute) lower respiratory infection; Z68.1 Body mass index [BMI] 19.9 or less, adult; G35 Multiple sclerosis; J12.2 Parainfluenza virus pneumonia; I25.2 Old myocardial infarction; F17.210 Nicotine dependence, cigarettes, uncomplicated; Z99.81 Dependence on supplemental oxygen; R73.9 Hyperglycemia, unspecified; Z79.899 Other long term (current) drug therapy; Z86.73 Personal history of transient ischemic attack (TIA), and cerebral infarction without residual deficits
CPT/HCPCS: 36600; 71045; 71275; 80048; 80053; 82803; 82962; 83036; 83735; 83880; 84100; 84443; 84484; 85025; 85379; 87070; 87077; 87186; 87205; 87449; 87631; 87633; 87641; 93005; 94002; 94003; 94640; 94668; 94762; 97162; 97166; 97530; 97802; 97803; 99252; 99282; 99406; J7040; J7050; A4216; G0463

== ENCOUNTER 2023-09-04 14:24 | Inpatient (IN) | payer MEDICARE, MEDICAID, SELFPAY ==
[2023-09-04 14:40] VITALS: BP 114/88; PULSE 90; RESP 20; TEMP 36.3; O2SAT 96; BMI 17.6
--- NOTE | 2023-09-04 14:49 | HP.PCM_ITS ---
HPI - General General Date of Admission: 09/04/23 Date of Service: 09/04/23 Chief Complaint: Here for rehabilitation. HPI Narrative 08/30/2023 ANA KAPOOR, is a 68 Male who presents to [facility] ED shortness of breath. SOB worse x 2 days, oxygen dependent COPD. BiPAP, nebulizers, steroids for COPD exacerbation. EKG okay, cbcd okay, bmp okay, Chest X-ray okay. 08/30/2023 Admit [facility] ICU. Oxygen 4 liters per NC, may need BiPAP. Levaquin, sputum culture, Solu-medrol, nebulizers for COPD exacerbation. Check strep pneumo, legionella antigens, covid, flu, rsv. Nicotine 21mg patch 1 patch daily for smoking cessation. 08/31/2023 Dr. Corral recommended weaning oxygen, empiric PAP, nebulizers, iv steroids, antibiotics, nicotine replacement. Transfer out of ICU. 08/31/2023 Alternating nasal cannula and BiPAP. Respiratory panel positive parainfluenza 3. Levaquin iv pending sputum culture results. 09/01/2023 Low flow nasal cannula oxygen. Sputum culture growing strep pneumo. Rocephin iv for strep pneumo pneumonia. iv steroids, nebulizers for COPD exacerbation. 09/02/2023 Agreed to short term SNF for discharge. Rocephin iv for s. pneumo pneumonia. iv steroids, nebs, oxygen for COPD exacerbation. 09/03/2023 Oxygen 2 liters per NC. Pre-CERT for SNF. Change Rocephin to oral Keflex for S. Pneumo pneumonia. PT/OT SNF for debility. 09/04/2023 Admit to TCU with debility, here for rehabilitation, strengthening, prior to discharge home alone. [facility] Medical History (Updated 09/04/23 @ 15:[address] Ivan Faulkner MD) Stroke Myocardial infarct Smoker History of back problems Multiple sclerosis History of back pain COPD (chronic obstructive pulmonary disease) Home Medications ?Medication ?Instructions ?Recorded ?Last Taken ?Type tamsulosin 0.4 mg capsule 0.4 mg PO QHS BPH 08/30/23 08/29/23 History albuterol sulfate 2.5 mg/3 mL 2.5 mg (3 mL) inhalation Q2H PRN 09/04/23 Unknown Rx (0.083 %) solution for nebulization PRN SHORTNESS OF BREATH #0 mL cephalexin 500 mg capsule 500 mg PO Q8 pneumonia #0 caps 09/04/23 Unknown Rx enoxaparin 40 mg/0.4 mL 40 mg (0.4 mL) subcut DAILY blood 09/04/23 Unknown Rx subcutaneous syringe thinner #0 mL food supplemt, lactose-reduced 120 ml PO TIDCM nutrition suppleme 09/04/23 Unknown Rx 0.08 gram-1.5 kcal/mL oral liquid #0 mL (Ensure Plus High Protein) guaifenesin 1,200 mg tablet, 1,200 mg PO BID mucous #0 tabs 09/04/23 Unknown Rx extended release 12 hr (Mucus Relief ER) ipratropium 0.5 mg-albuterol 3 mg 3 ml inhalation Q4H.RT pneumonia 09/04/23 Unknown Rx (2.5 mg base)/3 mL nebulization #0 mL soln nicotine 21 mg/24 hr daily 21 mg transdermal DAILY smoker #0 09/04/23 Unknown Rx transdermal patch ea prednisone 20 mg tablet 20 mg PO BREAKFAST lungs #0 tabs 09/04/23 Unknown Rx sennosides 8.6 mg-docusate sodium 2 tab PO BID PRN Constipation #0 09/04/23 Unknown Rx 50 mg tablet (Stool tabs Softener-Stimulant Laxative) Allergy/AdvReac Type Severity Reaction Status Date / Time acetaminophen (From Tylenol) AdvReac Intermediate Nausea Verified 09/01/23 21:18 Penicillins AdvReac Upset Verified 09/01/23 09:46 Stomach Family History Father Myocardial infarction Social History household members: none Smoking Status: Current every day smoker tobacco type: cigarettes how long ago did patient quit smoking: Currently smoking anywhere from 1/2 to 2 packs of cigarettes daily quit status: not considering quitting alcohol intake: current alcohol intake frequency: a few times a month substance use type: does not use ROS Constitutional Constitutional: Reports weakness; Denies chills, fever(s) or weight gain ENT HEENT: Denies headache(s), nasal congestion or nasal discharge Cardiovascular Cardiovascular: Denies chest pain or palpitations Respiratory/Chest Respiratory/Chest: Reports cough, dyspnea, dyspnea on exertion, shortness of breath at rest, shortness of breath with exertion and wheezing; Denies excessive phlegm production Gastrointestinal Gastrointestinal: Denies abdominal pain, nausea or vomiting Genitourinary Genitourinary: Denies dysuria Musculoskeletal Musculoskeletal: Denies joint pain or joint swelling Integumentary Integumentary: Denies rash or wounds Neurologic Neurologic: Denies focal weakness, numbness or tingling Psychiatric Psychiatric: Denies anxiety, auditory hallucinations, depression, homicidal i deation or suicidal ideation Physical Exam Const alert General Appearance: cooperative HEENT normocephalic Eyes PERRL and EOMs intact bilaterally Neck supple, no JVD and no carotid bruits Resp clear to auscultation bilaterally Auscultation: diminished lung sounds diffuse Cardio regular rate and regular rhythm GI normal to inspection, nondistended, normoactive bowel sounds, non-tender and non-distended Extremity normal capillary refill General Extremity: Negative for edema Skin no rashes or lesions noted General Skin Exam: no breakdown Psych affect normal Appearance: appropriate Assessment & Plan Assessment/Plan (1) Debility: (2) Acute hypoxic respiratory failure: (3) Infection due to parainfluenza virus 3: (4) Pneumococcal pneumonia: (5) COPD (chronic obstructive pulmonary disease): (6) Erectile dysfunction: (7) Stroke: (8) Coronary artery disease: (9) Tobacco abuse: (10) Multiple sclerosis: PLAN: Plan 68 year old male with below past medical history hospitalized for acute respiratory failure with hypoxia 2/2 copd exacerbation, parainfluenza 3, streptococcal pneumoniae pneumonia, admitted to TCU with debility, here for rehabilitation, strengthening, prior to discharge home alone. * Debility - PT/OT. * Pain - Tylenol 1000mg q6 prn pain (1-10). * Bowel senna/colace 2 tablets bid prn. * Adult immunization - Administer pneumonia vaccine, covid vaccine, flu vaccine as appropriate. * DVT prophylaxis - Lovenox 40mg sc daily. * COPD - Duoneb 3ml q4, Albuterol 2.5mg nebulized q2 prn, Prednisone 20mg daily thru 09/10/2023. * S. Pneumo pneumonia - Keflex 500mg q8 thru 09/06/2023. * Nutrition - Ensure Plus 120ml tidcm. * Congestion - Mucinex 1200mg bid. * Tobacco abuse - Nicotine 21mg td daily. * BPH - Tamsulosin 0.4mg qhs.
[2023-09-04 15:31] VITALS: BMI 17.6
[2023-09-04] MEDS: Ensure Plus High Protein 120 ML LIQUID PO (17:39)
--- NOTE | 2023-09-04 19:42 | NURSING ---
Patient reports taking eye drops (vuity 1 gtt each eye at home daily, pharmacy does not carry and would need interchanged to Pilocarpine 4% 1 gtt each eye daily. Notified Dr. Faulkner via phone, received order for Pilocarpine 4% 1 gtt each eye daily, order repeated back.
[2023-09-04 20:00] VITALS: PULSE 105; RESP 16
[2023-09-04 20:10] VITALS: PULSE 97; RESP 20; O2SAT 98
[2023-09-04] MEDS: Ipratropium/Albuterol Sulfate 3 ML AMPUL.NEB INHALATION ×2 (20:10→23:10)
[2023-09-04] MEDS: Cephalexin 500 MG Capsule PO (20:55)
[2023-09-04] MEDS: Tamsulosin HCl 0.4 MG Capsule PO (20:55)
[2023-09-04] MEDS: guaiFENesin 1,200 MG Tablet 1200 MG PO (20:55)
[2023-09-04 23:10] VITALS: PULSE 90; RESP 18
[2023-09-05] VITALS (8 sets, daily range): BP systolic 109; BP diastolic 58; PULSE 81–104; RESP 16–20; TEMP 36.5; O2SAT 94–99
[2023-09-05] MEDS: Ipratropium/Albuterol Sulfate 3 ML AMPUL.NEB INHALATION ×6 (03:24→23:25)
[2023-09-05] MEDS: Cephalexin 500 MG Capsule PO ×3 (06:48→22:09)
[2023-09-05] MEDS: 0.9% Saline Lock 10 ML Syringe IV (06:51)
[2023-09-05 08:00] LABS: Absolute Neutrophil Count 4.9 X10^3/uL (2.0-7.7); Basophil# 0.02 X10^3/uL; Basophil% 0.2 % (0-1); Eosinophil# 0.26 X10^3/uL; Eosinophils% 3.2 % (0-5); Hematocrit 46.2 % (40-54); Hemoglobin 14.1 g/dL (13.0-16.5); Lymphocyte % 27.9 % (19-41); Mean Corp Hgb Conc 30.5 g/dL (32-36); Mean Corpuscular Hgb 27.6 pg (27.0-32.0); Mean Corpuscular Volume 90.6 fL (80-94); Monocyte# 0.74 X10^3/uL; NRBC Flagged by Analyzer 0 % (0-5); Neutrophil # 4.87 X10^3/uL (2.7-7.7); Neutrophil % 59.1 % (47-70); Platelet Count 280 K/mm3 (150-450); RBC Distribution Width CV 14.3 % (11.6-14.6); RBC Distribution Width SD 47.8 fl (35.1-43.9); White Blood Count 8.2 K/mm3 (4.4-11.0)
[2023-09-05 08:27] LABS: Anion Gap 4 (5-15); BUN 22 mg/dL (7-18); BUN/Creat Ratio 24.6 RATIO (10-20); Calcium,Total 8.4 mg/dL (8.5-10.1); Chloride 101 mmol/L (98-107); Creatinine, Serum 0.89 mg/dL (0.70-1.30); EST Glomerular Filtration Rate 90 mL/min (>60); Est Glom Filt Rate - Afr Amer 108 mL/min (>60); Estimated Creatinine Clearance 69.25 ml/min; Glucose 84 mg/dL (74-106); Potassium 3.4 mmol/L (3.5-5.1); Sodium Level 139 mmol/L (136-145)
[2023-09-05] MEDS: PILOCARPINE 4% 1 DRP EACH EYE (08:38)
[2023-09-05] MEDS: predniSONE 20 MG Tablet PO (08:38)
[2023-09-05] MEDS: guaiFENesin 1,200 MG Tablet 1200 MG PO ×2 (08:38→22:09)
[2023-09-05] MEDS: Enoxaparin 40 MG/0.4 ML Syringe SC (08:38)
[2023-09-05] MEDS: Ensure Plus High Protein 120 ML LIQUID PO (08:40)
[2023-09-05] MEDS: Tuberculin,Purif.prot.deriv. 50 TU/ML Vial 0.1 ML ID (08:46)
--- NOTE | 2023-09-05 10:48 | PCM.PN.DRR ---
Documented by User: Kimberly Rojas 09/05/23 11:03 TCU RX Drug Regimen Review Subjective/Objective Subjective/Objective: Subjective: TCU Admission. 68 YOM presented to the ER with shortness of breath. Hospitalized for acute respiratory failure with hypoxia 2/2 copd exacerbation, parainfluenza 3, streptococcal pneumoniae pneumonia. Admitted to TCU with debility for strengthening and rehabilitation. Objective: Allergies acetaminophen (From Tylenol) Adverse Reaction (Intermediate, Verified 09/01/23 21:18) Nausea can not take tylenol d/t the buffers tearing up the lining in his belly Penicillins Adverse Reaction (Verified 09/01/23 09:46) Upset Stomach Current Medications Generic Name Dose Route Start Last Admin Trade Name Freq PRN Reason Stop Dose Admin Albuterol Sulfate 2.5 mg 09/04/23 15:28 Albuterol 2.5 Mg/3 Ml Vial.Neb. INHALATION Q2H PRN PRN SHORTNESS OF BREATH Albuterol/Ipratropium 3 ml 09/04/23 15:30 09/05/23 10:30 Ipratropium/Albuterol Sulfate 3 Ml Ampul.Neb INHALATION 3 ml Q4H.RT APRIL Administration Cephalexin 500 mg 09/04/23 22:00 09/05/23 06:48 Cephalexin 500 Mg Capsule PO 09/06/23 06:01 500 mg Q8 APRIL Administration Enoxaparin Sodium 40 mg 09/05/23 10:00 09/05/23 08:38 Enoxaparin 40 Mg/0.4 Ml Syringe SC 40 mg DAILY APRIL Administration Guaifenesin 1,200 mg 09/04/23 22:00 09/05/23 08:38 Guaifenesin 1,200 Mg Tablet PO 1,200 mg BID APRIL Administration Nicotine 21 mg 09/05/23 10:00 09/05/23 08:38 Nicotine 21 Mg Patch TD 21 mg DAILY APRIL Administration Nutritional Formula (Lactose Free) 120 ml 09/04/23 17:45 09/05/23 08:40 Ensure Plus High Protein 120 Ml Liquid PO 120 ml TIDCM APRIL Administration Pilocarpine HCl 1 drp 09/05/23 10:00 09/05/23 08:38 Pilocarpine 4% Opth 15ml Opth.Btl EACH EYE 1 drp DAILY APRIL Administration Prednisone 20 mg 09/05/23 08:00 09/05/23 08:38 Prednisone 20 Mg Tablet PO 09/10/23 08:01 20 mg BREAKFAST APRIL Administration Senna/Docusate Sodium 2 tablet 09/04/23 15:28 Senna/Docusate Sodium 1 Tablet PO BID PRN Constipation Sodium Chloride 10 - 40 ml 09/04/23 15:09 09/05/23 06:51 0.9% Saline Lock 10 Ml Syringe IV 10 ml UD PRN Administration SALINE FLUSH Tamsulosin HCl 0.4 mg 09/04/23 22:00 09/04/23 20:55 Tamsulosin Hcl 0.4 Mg Capsule PO 0.4 mg QHS APRIL Administration Tuberculin PPD 0.1 ml 09/12/23 10:00 Tuberculin,Purif.Prot.Deriv. 50 Tu/Ml Vial ID 09/12/23 10:01 X1 ONE Problem List Tobacco abuse (Acute) Multiple sclerosis (Acute) Coronary artery disease (Acute) Stroke (Acute) Erectile dysfunction (Acute) COPD (chronic obstructive pulmonary disease) (Chronic) Pneumococcal pneumonia (Acute) Infection due to parainfluenza virus 3 (Acute) Debility (Acute) Acute hypoxic respiratory failure (Acute) Vital Signs Temp Pulse Resp BP Pulse Ox O2 Del Method O2 Flow Rate 97.7 F L 104 H 20 H 109/58 L 96 Nasal Cannula 3 09/05/23 08:33 09/05/23 08:33 09/05/23 08:33 09/05/23 08:33 09/05/23 08:33 09/05/23 08:33 09/05/23 08:33 Oxygen Flow Rate (L/min) 3 Oxygen Delivery Method Nasal Cannula Weight: 62.505 kg Body Mass Index (BMI) 17.6 Sodium 139 mmol/L (136-145) 09/05/23 07:35 Potassium 3.4 mmol/L (3.5-5.1) L 09/05/23 07:35 Chloride 101 mmol/L (98-107) 09/05/23 07:35 Carbon Dioxide 34.0 mmol/L (21.0-32.0) H 09/05/23 07:35 Anion Gap 4 (5-15) L 09/05/23 07:35 BUN 22 mg/dL (7-18) H 09/05/23 07:35 Creatinine 0.89 mg/dL (0.70-1.30) 09/05/23 07:35 Est GFR (MDRD) Af Amer 108 mL/min (>60) 09/05/23 07:35 Est GFR (MDRD) Non-Af 90 mL/min (>60) 09/05/23 07:35 BUN/Creatinine Ratio 24.6 RATIO (10-20) H 09/05/23 07:35 Glucose 84 mg/dL (74-106) 09/05/23 07:35 Assessment/Plan: 1. Bowel: senna/docusate 2T PO BID PRN constipation. Resident has not had any doses. Please continue to monitor for constipation and PRN usage. Last documented bowel movement 09/03/23. 2. DVT prophylaxis: enoxaparin 40mg SC daily. Please continue to monitor for S/S of bleeding, hemoglobin (last 14.4g/dL), platelets (last 280,000) and renal function (CrCl 69mL/min). 3. S. Pneumo pneumonia (pansensitive): cephalexin 500mg PO Q8 thru 09/06/23. Please continue to monitor for S/S of diarrhea, infection and renal function. 4. COPD: prednisone 20mg PO daily thru 09/10/23, ipratropium/albuterol 3mL inhalation Q4H.RT and albuterol 2.5mg inhalation Q2H PRN SOB. No PRN doses have been given. Please continue to monitor for increased hunger, glucose (last 84mg/dL), agitation, upset stomach, HR (last 104), SOB and PRN usage. 5. Congestion: guaifenesin 1200mg PO BID. Please continue to monitor for congestion. 6. BPH: tamsulosin 0.4mg PO QHS. Please continue to monitor for S/S of BPH and BP (last 109/58). 7. Tobacco abuse: nicotine patch 21mg topical daily. Please continue to monitor for nicotine cravings, HR, BP, rash and nightmares. Assessment/Plan for indications treated with psychotropic medications: None Medical chart and medication regimen reviewed. The following medication irregularities or issues were identified: 1. Pilocarpine 4% 1gtt OU daily. I did not see a documented indication for this medication. Please consider adding the indication. Thanks. Date Date of Note:: 09/05/23 Documented by User: Dr. Ivan Faulkner MD 09/05/23 18:51 TCU RX Drug Regimen Review Provider Comments Provider responsibility Provider Comments to Recommendations by Pharmacy: Agree
[2023-09-05] MEDS: Potassium Chloride Oral Tablet 20 MEQ 40 MEQ PO (13:03)
[2023-09-05] MEDS: Tamsulosin HCl 0.4 MG Capsule PO (22:09)
[2023-09-06] MEDS: Ipratropium/Albuterol Sulfate 3 ML AMPUL.NEB INHALATION ×4 (03:35→19:25)
[2023-09-06 03:36] VITALS: PULSE 90; RESP 18
[2023-09-06] MEDS: Cephalexin 500 MG Capsule PO (06:31)
[2023-09-06 07:38] VITALS: PULSE 88; RESP 18; O2SAT 99
[2023-09-06 07:55] LABS: Anion Gap 2 (5-15); BUN 22 mg/dL (7-18); Calcium,Total 8.2 mg/dL (8.5-10.1); Chloride 106 mmol/L (98-107); Creatinine, Serum 0.69 mg/dL (0.70-1.30); EST Glomerular Filtration Rate 121 mL/min (>60); Est Glom Filt Rate - Afr Amer 147 mL/min (>60); Estimated Creatinine Clearance 77.05 ml/min; Glucose 85 mg/dL (74-106); Potassium 3.9 mmol/L (3.5-5.1); Sodium Level 138 mmol/L (136-145)
[2023-09-06] MEDS: PILOCARPINE 4% 1 DRP EACH EYE (10:14)
[2023-09-06] MEDS: Enoxaparin 40 MG/0.4 ML Syringe SC (10:17)
[2023-09-06] MEDS: guaiFENesin 1,200 MG Tablet 1200 MG PO ×2 (10:17→21:56)
[2023-09-06] MEDS: predniSONE 20 MG Tablet PO (10:17)
[2023-09-06 11:37] VITALS: PULSE 85; RESP 18
--- NOTE | 2023-09-06 15:42 | NURSING ---
Call placed to Dr. Faulkner. Patient having nasal congestion and having difficulties breathing through his nose. Patient also requesting bipap. New order for nasal spray and bipap.
[2023-09-06 16:00] VITALS: BP 106/69; PULSE 69; RESP 16; TEMP 35.7; O2SAT 100
[2023-09-06] MEDS: Ipratropium Bromide 0.06% NASAL SPRAY 2 SPRAY NASAL (18:06)
[2023-09-06 19:25] VITALS: PULSE 75; RESP 18
[2023-09-06] MEDS: Tamsulosin HCl 0.4 MG Capsule PO (21:56)
[2023-09-07] VITALS (10 sets, daily range): BP systolic 100; BP diastolic 77; PULSE 77–97; RESP 12–22; TEMP 36.8; O2SAT 93–98
[2023-09-07] MEDS: Ipratropium/Albuterol Sulfate 3 ML AMPUL.NEB INHALATION ×4 (07:09→22:18)
[2023-09-07] MEDS: PILOCARPINE 4% 1 DRP EACH EYE (08:22)
[2023-09-07] MEDS: Ipratropium Bromide 0.06% NASAL SPRAY 2 SPRAY NASAL ×2 (08:22→20:31)
[2023-09-07] MEDS: guaiFENesin 1,200 MG Tablet 1200 MG PO ×2 (08:22→20:29)
[2023-09-07] MEDS: predniSONE 20 MG Tablet PO (08:23)
--- NOTE | 2023-09-07 10:43 | NURSING ---
Offered covid vaccine, VIS provided. Patient refuses at this time.
[2023-09-07] MEDS: Ensure Plus High Protein 120 ML LIQUID PO ×2 (13:08→17:35)
[2023-09-07] MEDS: 0.9% Saline Lock 10 ML Syringe IV (15:19)
[2023-09-07] MEDS: Tamsulosin HCl 0.4 MG Capsule PO (20:29)
--- NOTE | 2023-09-07 20:29 | NURSING ---
Patient requests HS meds at this time
[2023-09-08] VITALS (7 sets, daily range): BP systolic 118; BP diastolic 77; PULSE 83–91; RESP 10–18; TEMP 36.7; O2SAT 92–98; BMI 17.8
[2023-09-08] MEDS: Ipratropium/Albuterol Sulfate 3 ML AMPUL.NEB INHALATION ×3 (06:45→20:54)
[2023-09-08] MEDS: Ipratropium Bromide 0.06% NASAL SPRAY 2 SPRAY NASAL (08:22)
[2023-09-08] MEDS: PILOCARPINE 4% 1 DRP EACH EYE (08:22)
[2023-09-08] MEDS: guaiFENesin 1,200 MG Tablet 1200 MG PO ×2 (08:23→22:33)
[2023-09-08] MEDS: predniSONE 20 MG Tablet PO (08:23)
[2023-09-08] MEDS: Ensure Plus High Protein 120 ML LIQUID PO ×2 (08:29→16:51)
[2023-09-08] MEDS: 0.9% Saline Lock 10 ML Syringe IV (15:11)
--- NOTE | 2023-09-08 21:05 | EKG12_ITS ---
Test Reason : CP Blood Pressure : / mmHG Vent. Rate : 086 BPM Atrial Rate : 086 BPM P-R Int : 156 ms QRS Dur : 072 ms QT Int : 362 ms P-R-T Axes : 077 096 084 degrees QTc Int : 433 ms Normal sinus rhythm Normal ECG When compared with ECG of 30-AUG-2023 10:24, Nonspecific T wave abnormality now evident in Anterior leads Confirmed by Roddy Davis ([id number]), newspaper editor managing KAILYN MEDRANO ([id number]) on 09/09/2023 1:14:03 PM Referred By: JAYDEN Confirmed By:Roddy Davis
--- NOTE | 2023-09-08 21:17 | EKG12_ITS ---
Test Reason : CP Blood Pressure : / mmHG Vent. Rate : 083 BPM Atrial Rate : 083 BPM P-R Int : 172 ms QRS Dur : 064 ms QT Int : 352 ms P-R-T Axes : 000 147 146 degrees QTc Int : 413 ms Suspect arm lead reversal, interpretation assumes no reversal Normal sinus rhythm Low voltage QRS Septal infarct , age undetermined Lateral infarct , age undetermined Abnormal ECG When compared with ECG of 30-AUG-2023 10:24, QRS axis Shifted right Septal infarct is now Present Lateral infarct is now Present Confirmed by ASHWIN GEORGE, ARAM ([id number]), city editor KAILYN MEDRANO ([id number]) on 09/17/2023 6:38:22 AM Referred By: JAYDEN Confirmed By:VENKATESH CHRISTOPHER MD
[2023-09-08] MEDS: Tamsulosin HCl 0.4 MG Capsule PO (22:33)
[2023-09-09] VITALS (7 sets, daily range): BP systolic 106; BP diastolic 68; PULSE 82–94; RESP 16–18; TEMP 36.8; O2SAT 94–96
[2023-09-09] MEDS: Ipratropium/Albuterol Sulfate 3 ML AMPUL.NEB INHALATION ×4 (07:35→22:37)
[2023-09-09] MEDS: predniSONE 20 MG Tablet PO (08:38)
[2023-09-09] MEDS: guaiFENesin 1,200 MG Tablet 1200 MG PO ×2 (08:38→22:08)
[2023-09-09] MEDS: PILOCARPINE 4% 1 DRP EACH EYE (08:39)
[2023-09-09] MEDS: Ensure Plus High Protein 120 ML LIQUID PO ×3 (08:41→17:22)
[2023-09-09] MEDS: Ipratropium Bromide 0.06% NASAL SPRAY 2 SPRAY NASAL (08:41)
[2023-09-09 09:14] LABS: Troponin-I HS 4 pg/mL (3.0-78.0)
--- NOTE | 2023-09-09 09:51 | CASEMGMT ---
Addendum entered by Pj Boykin 09/09/23 13:57: SW received return call from [facility]; Medical Lab Technician, Sohamsolomonmalik Geller ([phone]) to confirm that the patient is currently active with services. Patient has a medical alert button and he gets 14 meals a week from [facility]. Patient meals are currently on hold for delivery. Pratik informed SW that she may visit patient at bedside next week. SW notified patient. Addendum entered by Pj Boykin 09/09/23 13:53: SW received update from [employer] that the patient is current with [facility] receiving 2LPM Concentrator and 3LPM with exertion. Patient has portable oxygen currently with belongings in closet. Original Note: Social Work Care Plan IDT met with patient at bedside to complete care plans. Discussed patient's progress with therapy (PT/OT), Dietary, and nursing. Patient is progressing with therapy ambulating 80ft SBA and toileting SBA. Patient informed staff that he feels tired at times due to SOB. Patient informed staff that he has concentrator, tanks, and portable tank via [facility]. Patient informed SW that he would like to discharge to return to work next week. SW educated patient on [facility] plan insurance coverage and next review 09/14 with [facility] 09/15. Patient informed SW that he is hoping discharge to be sooner. SW discussed home health care and outpatient therapy options. Patient informed SW that he is unable to attend outpatient therapy or obtain home health care services due to work schedule. Patient informed SW that he would like to improve with therapy and discharge home to resume work. SW inquired about medical alert device; patient informed SW that he has medical alert device, but he does not utilize it. Patient informed SW that he will not wear medical alert device. SW informed patient that therapy will continue to support patient's goals. Patient informed SW that he previously had [facility] for meals on wheels and passport assistance. SW will continue to monitor to assist patient with care. JOHANA Bolanos
[2023-09-09] MEDS: 0.9% Saline Lock 10 ML Syringe IV ×2 (10:26→22:07)
--- NOTE | 2023-09-09 17:00 | CASEMGMT ---
Social Work SW met with patient at bedside to complete initial intake assessment. SW introduced self and role. Patient confirmed demographics. Patient denies any emergency contact at this time. Patient informed SW that his daughter resides in [place], [place], but she is estranged at this time. Patient informed SW that he does not have any family members locally or anyone to add as emergency contact. Patient confirmed code status as Full Code. Patient denies having a living will or advanced directive. The patient informed SW that he has an appointment with an trust and estates attorney to complete a living will on September 21. Patient informed SW that he will have daughter and grandson placed on will. Patient informed SW that he goal is to return home. SW educated patient on insurance next review date 09/15/2023 with estimated discharge date 09/15. SW discussed recommendations for home health care and outpatient therapy. Patient declined. SW will continue to monitor for discharge planning. JOHANA Bolanos
[2023-09-09] MEDS: Tamsulosin HCl 0.4 MG Capsule PO (22:08)
[2023-09-10 02:00] VITALS: PULSE 88; RESP 14; O2SAT 95
[2023-09-10 07:02] VITALS: PULSE 82; RESP 18; O2SAT 94
[2023-09-10] MEDS: Ipratropium/Albuterol Sulfate 3 ML AMPUL.NEB INHALATION ×3 (07:05→19:11)
[2023-09-10] MEDS: Ensure Plus High Protein 120 ML LIQUID PO ×3 (09:15→17:51)
[2023-09-10] MEDS: predniSONE 20 MG Tablet PO (09:15)
[2023-09-10] MEDS: guaiFENesin 1,200 MG Tablet 1200 MG PO ×2 (09:15→21:28)
[2023-09-10] MEDS: PILOCARPINE 4% 1 DRP EACH EYE (09:16)
[2023-09-10] MEDS: Ipratropium Bromide 0.06% NASAL SPRAY 2 SPRAY NASAL ×2 (09:16→21:28)
[2023-09-10 15:17] VITALS: BP 101/72; PULSE 97; RESP 16; TEMP 35.8; O2SAT 98
[2023-09-10 15:35] VITALS: PULSE 86; RESP 18
[2023-09-10 19:11] VITALS: PULSE 90; RESP 16; O2SAT 95
[2023-09-10] MEDS: Tamsulosin HCl 0.4 MG Capsule PO (21:28)
[2023-09-10 22:17] VITALS: PULSE 74; RESP 13; O2SAT 93
[2023-09-11] VITALS (8 sets, daily range): BP systolic 98; BP diastolic 62; PULSE 81–94; RESP 11–20; TEMP 36.4; O2SAT 92–96
[2023-09-11 06:05] LABS: Absolute Lymphocyte Count 1.87 X10^3/uL (0.83-4.51); Absolute Neutrophil Count 5.3 X10^3/uL (2.0-7.7); Basophil# 0.01 X10^3/uL; Basophil% 0.1 % (0-1); Eosinophil# 0.16 X10^3/uL; Hematocrit 38.7 % (40-54); Hemoglobin 12.1 g/dL (13.0-16.5); Lymphocyte # 1.87 X10^3/ul (0.83-4.51); Lymphocyte % 23.6 % (19-41); Mean Corp Hgb Conc 31.3 g/dL (32-36); Mean Corpuscular Hgb 27.8 pg (27.0-32.0); Mean Platelet Vol. 8.5 fl (6.2-12.0); Monocyte# 0.54 X10^3/uL; Monocyte% 6.8 % (0-10); NRBC Flagged by Analyzer 0 % (0-5); Neutrophil % 66.9 % (47-70); Platelet Count 285 K/mm3 (150-450); RBC Distribution Width CV 14.4 % (11.6-14.6); Red Blood Count 4.35 M/mm3 (4.6-6.2); White Blood Count 7.9 K/mm3 (4.4-11.0)
[2023-09-11 06:20] LABS: Anion Gap 2 (5-15); BUN 17 mg/dL (7-18); BUN/Creat Ratio 22.6 RATIO (10-20); Calcium,Total 8.3 mg/dL (8.5-10.1); Chloride 107 mmol/L (98-107); Creatinine, Serum 0.75 mg/dL (0.70-1.30); EST Glomerular Filtration Rate 110 mL/min (>60); Est Glom Filt Rate - Afr Amer 133 mL/min (>60); Estimated Creatinine Clearance 77.61 ml/min; Glucose 96 mg/dL (74-106); Potassium 4.6 mmol/L (3.5-5.1); Sodium Level 140 mmol/L (136-145)
[2023-09-11] MEDS: Ipratropium/Albuterol Sulfate 3 ML AMPUL.NEB INHALATION ×5 (06:45→23:20)
[2023-09-11] MEDS: guaiFENesin 1,200 MG Tablet 1200 MG PO ×2 (08:43→20:52)
[2023-09-11] MEDS: Ensure Plus High Protein 120 ML LIQUID PO ×3 (08:43→16:52)
[2023-09-11] MEDS: PILOCARPINE 4% 1 DRP EACH EYE (08:43)
[2023-09-11] MEDS: Ipratropium Bromide 0.06% NASAL SPRAY 2 SPRAY NASAL ×2 (08:47→20:52)
--- NOTE | 2023-09-11 15:40 | CASEMGMT ---
Social Work SW met with patient at bedside to complete MDS. Patient BIM () and PhQ-2 () JOHANA Bolanos
[2023-09-11] MEDS: Tamsulosin HCl 0.4 MG Capsule PO (20:52)
[2023-09-12] VITALS (9 sets, daily range): BP systolic 99; BP diastolic 66; PULSE 78–93; RESP 17–18; TEMP 36.4; O2SAT 90–95
[2023-09-12] MEDS: Ipratropium/Albuterol Sulfate 3 ML AMPUL.NEB INHALATION ×5 (07:30→23:08)
[2023-09-12] MEDS: PILOCARPINE 4% 1 DRP EACH EYE (07:53)
[2023-09-12] MEDS: guaiFENesin 1,200 MG Tablet 1200 MG PO ×2 (07:53→21:17)
[2023-09-12] MEDS: Ipratropium Bromide 0.06% NASAL SPRAY 2 SPRAY NASAL ×2 (07:54→21:18)
[2023-09-12] MEDS: Ensure Plus High Protein 120 ML LIQUID PO ×3 (07:59→17:41)
[2023-09-12] MEDS: Tuberculin,Purif.prot.deriv. 50 TU/ML Vial 0.1 ML ID (11:05)
[2023-09-12] MEDS: Tamsulosin HCl 0.4 MG Capsule PO (21:17)
[2023-09-13] VITALS (10 sets, daily range): BP systolic 99–103; BP diastolic 70–75; PULSE 71–98; RESP 16–20; TEMP 36.9; O2SAT 94–97
[2023-09-13] MEDS: Ipratropium/Albuterol Sulfate 3 ML AMPUL.NEB INHALATION ×4 (07:30→19:14)
[2023-09-13] MEDS: PILOCARPINE 4% 1 DRP EACH EYE (08:22)
[2023-09-13] MEDS: Ensure Plus High Protein 120 ML LIQUID PO ×3 (08:22→17:36)
[2023-09-13] MEDS: guaiFENesin 1,200 MG Tablet 1200 MG PO ×2 (08:22→22:34)
[2023-09-13] MEDS: Ipratropium Bromide 0.06% NASAL SPRAY 2 SPRAY NASAL (08:23)
[2023-09-13] MEDS: Tamsulosin HCl 0.4 MG Capsule PO (22:38)
[2023-09-14] VITALS (7 sets, daily range): BP systolic 93; BP diastolic 70; PULSE 84–94; RESP 16–20; TEMP 36.9; O2SAT 94–96
[2023-09-14] MEDS: guaiFENesin 1,200 MG Tablet 1200 MG PO ×2 (10:05→20:41)
[2023-09-14] MEDS: Ensure Plus High Protein 120 ML LIQUID PO ×3 (10:05→17:55)
[2023-09-14] MEDS: PILOCARPINE 4% 1 DRP EACH EYE (10:07)
[2023-09-14] MEDS: Ipratropium/Albuterol Sulfate 3 ML AMPUL.NEB INHALATION ×2 (20:12→23:15)
[2023-09-14] MEDS: Ipratropium Bromide 0.06% NASAL SPRAY 2 SPRAY NASAL (20:41)
[2023-09-14] MEDS: Tamsulosin HCl 0.4 MG Capsule PO (20:41)
[2023-09-15] VITALS (7 sets, daily range): BP systolic 118; BP diastolic 62; PULSE 89–105; RESP 16–22; TEMP 36.6; O2SAT 92–96; BMI 18.3
[2023-09-15] MEDS: Ipratropium/Albuterol Sulfate 3 ML AMPUL.NEB INHALATION ×5 (07:11→23:39)
[2023-09-15] MEDS: Ensure Plus High Protein 120 ML LIQUID PO ×3 (08:20→17:58)
[2023-09-15] MEDS: guaiFENesin 1,200 MG Tablet 1200 MG PO ×2 (08:22→21:31)
[2023-09-15] MEDS: PILOCARPINE 4% 1 DRP EACH EYE (08:23)
[2023-09-15] MEDS: Ipratropium Bromide 0.06% NASAL SPRAY 2 SPRAY NASAL (08:24)
[2023-09-15] MEDS: Ibuprofen 200 MG Tablet PO ×2 (13:12→21:32)
[2023-09-15] MEDS: Tamsulosin HCl 0.4 MG Capsule PO (21:31)
[2023-09-16 07:07] VITALS: PULSE 83; RESP 18; O2SAT 94
[2023-09-16] MEDS: Ipratropium/Albuterol Sulfate 3 ML AMPUL.NEB INHALATION ×3 (07:07→19:35)
[2023-09-16] MEDS: PILOCARPINE 4% 1 DRP EACH EYE (08:49)
[2023-09-16] MEDS: Ipratropium Bromide 0.06% NASAL SPRAY 2 SPRAY NASAL ×2 (08:49→22:25)
[2023-09-16] MEDS: guaiFENesin 1,200 MG Tablet 1200 MG PO ×2 (08:50→22:25)
[2023-09-16] MEDS: Ensure Plus High Protein 120 ML LIQUID PO ×3 (08:50→17:34)
[2023-09-16 10:00] VITALS: PULSE 98; RESP 20; O2SAT 95
[2023-09-16 10:51] VITALS: O2SAT 92
--- NOTE | 2023-09-16 11:45 | CASEMGMT ---
Social Work- NOMNC SW received [facility] notice of Medicare Non-Coverage for current [facility] effective on 09/18/2023. SW met with patient at bedside to notify of NOMNC. SW and patient reviewed NOMNC together. Patient was informed of Medicare Right to appeal discharge Patient informed SW that he would like to discharge home on 09/18/2023. Patient provided verbal understanding of NOMNC and signed NOMNC. A copy of NOMNC was left at bedside with patient. SW discussed home with home health care v. outpatient therapy. Patient declined services at this time. SW inquired about notifying [facility] to restart MOW. Patient declined SW notification. SW inquired about transportation to home. Patient informed SW that he will look into contacting co-workers to determine, if they can assist with transportation to home. SW provided patient with transportation resources. Discharge 09/18/2023- Home; [facility] JOHANA Bolanos
[2023-09-16 13:01] VITALS: BP 110/65; PULSE 97; RESP 20; TEMP 37; O2SAT 95
[2023-09-16 14:20] VITALS: PULSE 91; RESP 18
[2023-09-16 19:35] VITALS: PULSE 99; RESP 20; O2SAT 97
--- NOTE | 2023-09-16 19:57 | PCM.DC.SUM ---
Providers Date of Admission: 09/04/23 Primary Care Physician: Dr. Lexx Jackson MD Reason For Visit: ACUTE HYPOXEMIC RESPIRATORY FAILURE Diagnosis Discharge Diagnosis (1) Debility: Status: Acute Code(s): R53.81 - Other malaise (2) Acute hypoxic respiratory failure: Status: Acute Code(s): J96.01 - Acute respiratory failure with hypoxia (3) Infection due to parainfluenza virus 3: Status: Acute Code(s): B34.8 - Other viral infections of unspecified site (4) Pneumococcal pneumonia: Status: Acute Code(s): J13 - Pneumonia due to Streptococcus pneumoniae (5) COPD (chronic obstructive pulmonary disease): Status: Chronic Code(s): J44.9 - Chronic obstructive pulmonary disease, unspecified (6) Erectile dysfunction: Status: Acute Code(s): N52.9 - Male erectile dysfunction, unspecified (7) Stroke: Status: Acute Code(s): I63.9 - Cerebral infarction, unspecified (8) Coronary artery disease: Status: Acute Code(s): I25.10 - Atherosclerotic heart disease of [place] coronary artery without angina pectoris (9) Tobacco abuse: Status: Acute Code(s): Z72.0 - Tobacco use (10) Multiple sclerosis: Status: Acute Code(s): G35 - Multiple sclerosis Plan 68 year old male with below past medical history hospitalized for acute respiratory failure with hypoxia 2/2 copd exacerbation, parainfluenza 3, streptococcal pneumoniae pneumonia, admitted to TCU with debility, here for rehabilitation, strengthening, prior to discharge home alone. Debility - PT/OT. Pain - Tylenol 1000mg q6 prn pain (1-10). Bowel senna/colace 2 tablets bid prn. Adult immunization - Administer pneumonia vaccine, covid vaccine, flu vaccine as appropriate. DVT prophylaxis - Lovenox 40mg sc daily. COPD - Duoneb 3ml q4, Albuterol 2.5mg nebulized q2 prn, Prednisone 20mg daily thru 09/10/2023. S. Pneumo pneumonia - Keflex 500mg q8 thru 09/06/2023. Nutrition - Ensure Plus 120ml tidcm. Congestion - Mucinex 1200mg bid. Tobacco abuse - Nicotine 21mg td daily. BPH - Tamsulosin 0.4mg qhs. Medications at Discharge Home Medications tamsulosin 0.4 mg capsule 0.4 mg PO QHS BPH 08/30/23 albuterol sulfate 2.5 mg/3 mL (0.083 %) solution for nebulization 2.5 mg (3 mL) inhalation Q2H PRN PRN SHORTNESS OF BREATH #0 mL 09/04/23 ipratropium 0.5 mg-albuterol 3 mg (2.5 mg base)/3 mL nebulization soln 3 ml inhalation Q4H.RT pneumonia #0 mL 09/04/23 guaifenesin 1,200 mg tablet, extended release 12 hr (Mucus Relief ER) 1,200 mg PO BID 30 days #60 tabs 09/16/23 ipratropium bromide 42 mcg (0.06 %) nasal spray 2 spray NASAL 4X/DAY PRN NASAL CONGESTION #0 mL 09/16/23 nicotine 21 mg/24 hr daily transdermal patch 21 mg transdermal DAILY 30 days #30 ea 09/16/23 pilocarpine HCl 4 % eye drops 1 drp EACH EYE DAILY #0 mL 09/16/23 Hospital Course Operations None Procedures None Summary of Care Provided Minutes Spent on Discharge: 35 Hospital Course: 68 year old male with below past medical history hospitalized for acute respiratory failure with hypoxia 2/2 copd exacerbation, parainfluenza 3, streptococcal pneumoniae pneumonia, admitted to TCU with debility, here for rehabilitation, strengthening, prior to discharge home alone. Discharge home alone 09/18/2023, [facility] Home oxygen. Oxygen: Patient requires 2 LPM of oxygen via nasal cannula d/t COPD; requires a concentrator and portable O2 tanks to allow patient to be mobile in the home and the community; O2 will improve the patient's condition in the home setting. Qualifying test completed and reviewed within 48 hours of DC. Physical Exam Const alert General Appearance: cooperative HEENT normocephalic Eyes PERRL and EOMs intact bilaterally Neck supple, no JVD and no carotid bruits Resp clear to auscultation bilaterally Auscultation: diminished lung sounds diffuse Cardio regular rate and regular rhythm GI normal to inspection, nondistended, normoactive bowel sounds, non-tender and non-distended Extremity normal capillary refill General Extremity: Negative for edema Skin no rashes or lesions noted General Skin Exam: no breakdown Psych affect normal Appearance: appropriate Medical Records Data Medical Nutrition Assessment Dietitian: Malnutrition Criteria Met Start: 09/05/23 11:47 Freq: Status: Active Protocol: Document 09/05/23 11:47 KEKE (Rec: 09/05/23 11:47 KEKE [id number]) Nutrition Malnutrition Evidence of Malnutrition Exists Yes Malnutrition (severe): Acute Illness/Injury Evidenced By Weight Loss (Severe),Physical Changes (Severe) Clinical Problem Acute Disease or Injury Related Malnutrition Etiology related to inadequate energy/ oral intake and increased energy expenditure Signs/Symptoms as evidenced by BMI of 17.7, significant weight loss of 4.2 % within 1 week and moderate to severe muscle wasting and fat depletion noted in the clavicle, orbitals and temporal region per NFPA. Status Active Problem Recommendation Dietitian Recommendations/Changes Will continue with liberal regular diet along with magic cup BID w/ lunch and dinner as well as 120 ml ensure plus high protein 3x/day w/ medpass . Will continue to follow, monitor oral intakes and ONS tolerance, and modify interventions as needed. Weight / BMI Weight Weight: 64.954 kg Body Mass Index (BMI) 18.3 ABG / Lab / Microbiology Data 09/11/23 05:46 09/11/23 05:46 D/C Instructions Discharge Diet: No restrictions Discharge Activity: Return to Normal Activity, May Shower and Use Walker Weight Bearing Status: Weight bearing as tolerated Call your doctor if you observe: Fever of 101 or Higher, Inability to urinate, Inability to have a bowel movement, Shortness of breath, Dizziness, Fainting spells, Swelling in the ankles, Chest pain and Uncontrolled pain Additional Instructions: Discharge home alone 09/18/2023, [facility] Home oxygen. Oxygen: Patient requires 2 LPM of oxygen via nasal cannula d/t COPD; requires a concentrator and portable O2 tanks to allow patient to be mobile in the home and the community; O2 will improve the patient's condition in the home setting. Qualifying test completed and reviewed within 48 hours of DC. Meaningful Use Info Meaningful Use Meaningful Use Diagnoses (Choose all that apply): None applicable Ischemic Stroke Statin Dosing Therapy Reference: STATIN DOSE THERAPY REFERENCE: * Patients > 75 years receive moderate or high dose statin therapy. * Patients 75 years or YOUNGER should receive HIGH intensity statin dose unless contraindicated. You will be required to document reason for non-treatment if statin daily dose does not meet guidelines. HIGH DOSE STATIN THERAPY DAILY Atorvastatin > than or = to 40 mg Rosuvastatin > than or = to 20 mg Amlodipine + Atorvastatin > than or = to 2.5/40 mg Ezetimibe + Simvastatin 10/80 mg Simvastatin 80mg Discharge Plan Admission Admit Date/Time: 09/04/23 14:24 Primary Reason for Your Visit: Debility. Attending Provider: Ivan Faulkner Chi Primary Care Provider: Lexx Jackson Instructions Additional Instructions / Restrictions: Discharge home alone 09/18/2023, [facility] Home oxygen. Oxygen: Patient requires 2 LPM of oxygen via nasal cannula d/t COPD; requires a concentrator and portable O2 tanks to allow patient to be mobile in the home and the community; O2 will improve the patient's condition in the home setting. Qualifying test completed and reviewed within 48 hours of DC. Discharge Orders/Prescriptions Prescriptions: New guaifenesin [Mucus Relief ER] 1,200 mg Tablet Extended Release 12hr 1,200 mg PO BID 30 Days Qty: 60 0RF nicotine 21 mg/24 hr Patch 24 Hour 21 mg transdermal DAILY 30 Days Qty: 30 0RF ipratropium bromide 42 mcg (0.06 %) Zachary,Non-Aerosol 2 spray NASAL 4X/DAY PRN (Reason: NASAL CONGESTION) Qty: 0 0RF pilocarpine HCl 4 % Drops 1 drp EACH EYE DAILY Qty: 0 0RF Continued tamsulosin 0.4 mg capsule 0.4 mg PO QHS albuterol sulfate 2.5 mg /3 mL (0.083 %) Solution For Nebulization 2.5 mg inhalation Q2H PRN PRN (Reason: SHORTNESS OF BREATH ) Qty: 0 0RF ipratropium-albuterol 0.5 mg-3 mg(2.5 mg base)/3 mL Solution For Nebulization 3 ml inhalation Q4H.RT Qty: 0 0RF Discontinued cephalexin 500 mg Capsule 500 mg PO Q8 Qty: 0 0RF Rx Instructions: administer for 5 doses, then stop enoxaparin 40 mg/0.4 mL Syringe 40 mg subcut DAILY Qty: 0 0RF guaifenesin [Mucus Relief ER] 1,200 mg Tablet Extended Release 12hr 1,200 mg PO BID Qty: 0 0RF Ensure Plus High Protein 0.08 gram-1.5 kcal/mL Liquid 120 ml PO TIDCM Qty: 0 0RF nicotine 21 mg/24 hr Patch 24 Hour 21 mg transdermal DAILY Qty: 0 0RF prednisone 20 mg Tablet 20 mg PO BREAKFAST Qty: 0 0RF Rx Instructions: give 6 doses, then discontinue-start 09/05/23 sennosides-docusate sodium [Stool Softener-Stimulant Laxat] 8.6-50 mg Tablet 2 tab PO BID PRN (Reason: Constipation) Qty: 0 0RF Referrals / Follow Up: Lexx Jackson MD [Primary Care Provider] - 09/22/23 2:20 pm Segun Valdez NP, [employer] [Non-Staff] - ( has switched to urology, no longer family practice) Disposition Disposition (needs filled in before D/C Order can be placed): Home, Self Care
[2023-09-16] MEDS: Tamsulosin HCl 0.4 MG Capsule PO (22:25)
[2023-09-17] VITALS (8 sets, daily range): BP systolic 106; BP diastolic 62; PULSE 79–96; RESP 16–20; TEMP 36.6; O2SAT 96–97
[2023-09-17] MEDS: Ipratropium/Albuterol Sulfate 3 ML AMPUL.NEB INHALATION ×5 (00:08→23:17)
--- NOTE | 2023-09-17 08:39 | MDS.RN ---
Information for the MDS was obtained from review of the clinical record, interview of resident, staff, and direct observation of resident?s care.
[2023-09-17] MEDS: Ibuprofen 200 MG Tablet PO (08:50)
--- NOTE | 2023-09-17 09:31 | CASEMGMT ---
Addendum entered by Pj Boykin 09/17/23 10:33: SW received update from TELLO Hamilton informing SW that the patient is declining medical follow up appointment to be arranged with Metal Numerical Tool Programmer, Dr. Leticia Corral MD. Patient is requesting to arrange outpatient follow up himself. Original Note: Social Work SW received a voicemail from TELLO Caldwell informing SW that the patient the patient is requesting for BIPAP. Patient has BIPAP at night. Last ABG 08/29 was 48.2. Patient will require a sleep study and pulmonary evaluation. MYLA spoke with TELLO Hamilton who informed SW that Sleep Lab is unable to schedule for study same day as discharge 09/17. Patient will need to follow up with Pulmonary. Keyla informed SW that she will speak with patient about Pulmonary consult. MYLA reviewed request with RN. MYLA requested for updated home O2 Evaluation. Patient is currently on 2L at rest and 3.5L with exertion; provided by [facility]. SW will continue to follow for discharge support. JOHANA Bolanos
[2023-09-17] MEDS: Ensure Plus High Protein 120 ML LIQUID PO ×3 (09:33→18:07)
[2023-09-17] MEDS: guaiFENesin 1,200 MG Tablet 1200 MG PO ×2 (09:33→20:34)
[2023-09-17] MEDS: PILOCARPINE 4% 1 DRP EACH EYE (09:34)
--- NOTE | 2023-09-17 10:03 | NURSING ---
Discussed appt with commercial insulator and sleep study with patient. He says he sees Tonia Corral, but says he doesn't like going to the doctor. Said these appointments get in the way of work and other things. Asked if he wanted RN to schedule him an appt. He declined, said he will after DC.
--- NOTE | 2023-09-17 13:06 | NURSING ---
Sleep lab calls back regarding patient want for bipap when he discharges. They report he needs an ABG test at rest while on 2L O2 per NC as well as nocturnal pulse ox while on bipap. Order placed to get ABG this evening and nocturnal pulse ox to be obtained tonight.
--- NOTE | 2023-09-17 17:41 | CASEMGMT ---
Social Work Prior to MDS, Patient informed SW that he has arranged transportation to discharge home with coworker between 10-. SW met with patient at bedside to complete discharge MDS. BIM () and PhQ-2 (09/13) Patient stated that he felt hopeless due to everyday I wake up here. SW explored those feelings with patient. Patient informed SW that he wanted to return home and work, but he had to remain in rehab due to debility. Patient is aware of his debility due to years of MS and COPD. Patient states that he has been sleeping more than usual due to his COPD. Patient stated that after therapy it takes a lot out of me, I just need to sleep. Patient informed SW that he slept more during the day due to fatigue associated with COPD. SW informed patient that he will need to follow up with Pulmonary due to concerns for obtaining a BIPAP. Patient informed SW that he is aware that follow up is required, but he stated It gets in the way. Patient continues to decline home health care services. Patient is active with [employer] currently renting supplies for concentrator and portable tanks. Discharge: Home JOHANA Bolanos
[2023-09-17 20:21] LABS: Allen Test Positive; Base Excess 4 mmol/L (-2 to +2); Bicarbonate 28.6 mmol/L (22-26); Blood Gas Specimen Type ART; Mode Not entered; O2 Delivery Device Not entered; PO2 83 mmHG (75-100); SITE L Radial; SO2 96 % (95-99); Total Carbon Dioxide 30 mmol/L; pCO2 47.6 mmHg (35-45); pH 7.39 (7.35-7.45)
[2023-09-17] MEDS: Tamsulosin HCl 0.4 MG Capsule PO (20:34)
[2023-09-18 03:17] VITALS: PULSE 76; RESP 19; O2SAT 97
[2023-09-18 06:10] LABS: Absolute Lymphocyte Count 0.56 X10^3/uL (0.83-4.51); Absolute Neutrophil Count 5.3 X10^3/uL (2.0-7.7); Basophil# 0.02 X10^3/uL; Basophil% 0.3 % (0-1); Eosinophil# 0.12 X10^3/uL; Eosinophils% 1.8 % (0-5); Hematocrit 33.6 % (40-54); Hemoglobin 10.5 g/dL (13.0-16.5); Lymphocyte # 0.56 X10^3/ul (0.83-4.51); Lymphocyte % 8.6 % (19-41); Mean Corp Hgb Conc 31.3 g/dL (32-36); Mean Corpuscular Hgb 27.9 pg (27.0-32.0); Mean Corpuscular Volume 89.4 fL (80-94); Mean Platelet Vol. 8.6 fl (6.2-12.0); Monocyte# 0.48 X10^3/uL; Monocyte% 7.3 % (0-10); NRBC Flagged by Analyzer 0 % (0-5); Neutrophil # 5.34 X10^3/uL (2.7-7.7); Neutrophil % 81.7 % (47-70); POSITIVE DIFFERENTIAL YES; Platelet Count 206 K/mm3 (150-450); RBC Distribution Width CV 14.6 % (11.6-14.6); RBC Distribution Width SD 47.6 fl (35.1-43.9); Red Blood Count 3.76 M/mm3 (4.6-6.2); White Blood Count 6.5 K/mm3 (4.4-11.0)
[2023-09-18 06:50] LABS: Anion Gap 0 (5-15); BUN 16 mg/dL (7-18); Calcium,Total 8.4 mg/dL (8.5-10.1); Chloride 108 mmol/L (98-107); Creatinine, Serum 0.62 mg/dL (0.70-1.30); EST Glomerular Filtration Rate 138 mL/min (>60); Est Glom Filt Rate - Afr Amer 167 mL/min (>60); Estimated Creatinine Clearance 80.06 ml/min; Glucose 108 mg/dL (74-106); Potassium 4.3 mmol/L (3.5-5.1); Sodium Level 136 mmol/L (136-145)
[2023-09-18 06:55] VITALS: PULSE 89; RESP 16; O2SAT 96
[2023-09-18 07:30] VITALS: PULSE 89; RESP 21
[2023-09-18] MEDS: Ipratropium/Albuterol Sulfate 3 ML AMPUL.NEB INHALATION ×2 (07:35→10:59)
[2023-09-18] MEDS: Ensure Plus High Protein 120 ML LIQUID PO (07:51)
[2023-09-18] MEDS: guaiFENesin 1,200 MG Tablet 1200 MG PO (07:53)
[2023-09-18] MEDS: PILOCARPINE 4% 1 DRP EACH EYE (07:53)
[2023-09-18 10:57] VITALS: PULSE 98; RESP 19
[2023-09-18 11:27] VITALS: BP 98/72; PULSE 91; RESP 20; TEMP 36.6; O2SAT 99
== END 2023-09-18 11:30 | disposition home or self-care (01) | DRG 193 ==
PROVIDERS: Admitting Provider Family Medicine Geriatric Medicine; PCP Family Medicine; Visit Provider Family Medicine Geriatric Medicine
DX: J13 Pneumonia due to Streptococcus pneumoniae (principal); J96.21 Acute and chronic respiratory failure with hypoxia; J44.1 Chronic obstructive pulmonary disease with (acute) exacerbation; J44.0 Chronic obstructive pulmonary disease with (acute) lower respiratory infection; E44.1 Mild protein-calorie malnutrition; Z68.1 Body mass index [BMI] 19.9 or less, adult; Z99.81 Dependence on supplemental oxygen; G35 Multiple sclerosis; I25.10 Atherosclerotic heart disease of native coronary artery without angina pectoris; F17.210 Nicotine dependence, cigarettes, uncomplicated; J12.2 Parainfluenza virus pneumonia; N52.9 Male erectile dysfunction, unspecified; B34.8 Other viral infections of unspecified site; N40.0 Benign prostatic hyperplasia without lower urinary tract symptoms; H40.9 Unspecified glaucoma; Z79.899 Other long term (current) drug therapy
CPT/HCPCS: 36415; 36600; 80048; 82803; 84484; 85025; 93005; 94002; 94003; 94640; 94762; 97110; 97116; 97162; 97166; 97530; 97535; 97802; 99406; A4216